=== PATIENT | male | born 1945 | race Caucasian/White ===

== ENCOUNTER 2019-10-02 10:54 | Outpatient (CLI) | payer MEDICARE, SELFPAY ==
--- NOTE | ~2019-10-02 | XR_ITS ---
EXAMINATION: XR chest 2V EXAM DATE: 10/02/2019 11:17 INDICATION: Shortness of breath. TECHNIQUE: Frontal and lateral projections of the chest obtained and reviewed. Comparison is made to prior examination from 07/19/2019. FINDINGS: There is patchy multisegmental left lower lobe airspace disease, small amount of right bas ilar airspace disease. Appearance most consistent with bronchopneumonia. Mid and upper lung zones are unremarkable. No pneumothorax or pleural effusion. Cardiomediastinal silhouette is normal. There are no osseous abnormalities identified. IMPRESSION: Development of bibasilar left greater than right multifocal airspace disease appearance m ost consistent with bronchopneumonia. Recommend 3 week follow-up exam. Reviewed, dictated and finalized at location B. 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 Recommend 3 week fo llow-up exam.
[2019-10-02 11:46] LABS: Basophils Absolute Auto 0.1 K/mm3 (0.0-0.1); Basophils Percent Auto 0.5 % (0.2-1.2); Eosinophils Percent Auto 0.2 % (0-4.4); Hematocrit 31.1 % (42.0-52.0); Immature Granulocyte Absolute 0.08 K/mm3 (0.00-0.031); Immature Granulocyte Percent A 0.6 % (0-0.5); Lymphocytes Absolute Auto 2.08 K/mm3 (0.9-3.2); Lymphocytes Percent Auto 15.6 % (18.3-44.2); Mean Corpuscular HGB Conc 32.2 g/dl (32-36); Mean Corpuscular Hemoglobin 30.4 pg (26-34); Mean Corpuscular Volume 94.5 fl (80-100); Mean Platelet Volume 10.7 fl (7.4-10.4); Monocytes Absolute Auto 1.2 K/mm3 (0.1-0.6); Monocytes Percent Auto 9.2 % (2.6-8.5); Neutrophils Absolute Auto 9.9 K/mm3 (1.3-6.7); Neutrophils Percent Auto 73.9 % (45.5-73.1); Platelet Count Result 287 k/mm3 (150-375); Red Blood Count 3.29 M/mm3 (4.6-6.20); Red Cell Distribution Width 15.7 % (11.5-14.5); White Blood Count 13.3 K/mm3 (4.5-10.0)
== END 2019-10-02 10:55 | disposition home or self-care (01) ==
LOC: ANHIMG 11:03
PROVIDERS: PCP Internal Medicine; Visit Provider Internal Medicine
DX: R06.09 Other forms of dyspnea (principal); D64.9 Anemia, unspecified; R91.8 Other nonspecific abnormal finding of lung field
CPT/HCPCS: 36415; 71046; 85025

== ENCOUNTER 2019-10-30 13:51 | Outpatient (CLI) | payer MEDICARE, SELFPAY ==
--- NOTE | ~2019-10-30 | XR_ITS ---
EXAMINATION: XR chest 2V DATE: 10/30/2019 14:07 INDICATION: Pneumonia, unspecified organism TECHNIQUE: Frontal and lateral views of the chest are obtained COMPARISON: 10/02/2019 FINDINGS: There are chronic reticular opacities of the lung bases there appear to be unchanged superi mposed opacities of the left lung base. There is no pleural effusion or pneumothorax. The cardiomedia stinal silhouette is normal. There is mild thoracic spondylosis. IMPRESSION: 1. Chronic interstitial lung disease of the visualized lung bases with possible superimposed pneumoni a or worsening interstitial lung disease in the left lung base Reviewed, dictated and finalized at location B. IMPRESSION: 1. Chronic interstitial lung disease of the visualized lung bases with possible superimposed pneumonia or worsening interstitial lung disease in the left lung base
== END 2019-10-30 13:52 | disposition home or self-care (01) ==
PROVIDERS: PCP Internal Medicine; Visit Provider Internal Medicine
DX: J84.9 Interstitial pulmonary disease, unspecified (principal)
CPT/HCPCS: 71046

== ENCOUNTER 2020-01-12 12:45 | Outpatient (CLI) | payer MEDICARE, SELFPAY ==
--- NOTE | ~2020-01-12 | XR_ITS ---
EXAMINATION: XR chest 2V EXAM DATE: 01/12/2020 13:06 INDICATION: Abnormal findings on diagnostic imaging. Follow-up exam. TECHNIQUE: Frontal and lateral projections of the chest obtained and reviewed. Comparison is made to prior examination from 10/30/2019. FINDINGS: Improvement in previously seen and suspected acute left basilar airspace disease, likely r esolution of the acute process at that time. The remaining by basilar airspace disease and microcalci fications consistent with chronic interstitial lung disease. The lungs are otherwise clear. There ar e no pleural effusions. The cardiomediastinal silhouette is within normal limits. There is no pneum othorax suspected. The bones and soft tissues are unremarkable. IMPRESSION: 1. Resolution of previously seen acute left basilar airspace disease. 2. Chronic interstitial lung disease. Reviewed, dictated and finalized at location A.
== END 2020-01-12 12:46 | disposition home or self-care (01) ==
LOC: ANHIMG 12:51
PROVIDERS: PCP Internal Medicine; Visit Provider Internal Medicine
DX: R93.89 Abnormal findings on diagnostic imaging of other specified body structures (principal); J84.9 Interstitial pulmonary disease, unspecified
CPT/HCPCS: 71046

== ENCOUNTER 2020-02-20 07:29 | Outpatient (CLI) | payer MEDICARE, SELFPAY ==
--- NOTE | ~2020-02-20 | US_ITS ---
US right upper quadrant INDICATION: Increased liver function tests PROCEDURE: Realtime right upper abdominal ultrasound. COMPARISON: No prior studies for comparison. FINDINGS: The pancreas is normal without focal mass or pancreatic ductal dilation. Liver echotexture is normal without focal mass or intrahepatic biliary dilatation. There is normal directional flow i n the portal vein. There is echogenic debris within the gallbladder with possible irregularity to the gallbladder morris. No definite stones. Common bile duct measures 5.6 mm. No sonographic Humphreys's sign. IMPRESSION: 1: Echogenic debris of the gallbladder with possible gallbladder wall irregularity/thickening. This m ay represent sludge, although gallbladder malignancy is not excluded. No definite cholelithiasis. No biliary dilatation. Reviewed, dictated and finalized at location B. IMPRESSION: 1: Echogenic debris of the gallbladder with possible gallbladder wall irregular ity/thickening. This may represent sludge, although gallbladder malignancy is n ot excluded. No definite cholelithiasis. No biliary dilatation.
== END 2020-02-20 07:30 | disposition home or self-care (01) ==
PROVIDERS: PCP Internal Medicine; Visit Provider Nurse Practitioner
DX: R79.89 Other specified abnormal findings of blood chemistry (principal)
CPT/HCPCS: 76705

== ENCOUNTER 2020-03-06 00:47 | Outpatient (CLI) | payer MEDICARE, SELFPAY ==
[2020-03-06 18:30] LABS: SARS-CoV-2 RNA PCR Negative
== END 2020-03-06 00:48 | disposition home or self-care (01) ==
LOC: ANHCOVIDDT 00:47
PROVIDERS: PCP Internal Medicine; Visit Provider Internal Medicine Gastroenterology
DX: Z01.812 Encounter for preprocedural laboratory examination (principal); Z11.59 Encounter for screening for other viral diseases
CPT/HCPCS: 87635; C9803; U0003

== ENCOUNTER 2020-03-09 02:02 | Day surgery (SDC) | payer MEDICARE, SELFPAY ==
[2020-02-27 14:52] VITALS: BMI 23.4
--- NOTE | 2020-03-08 09:59 | WPDANESEPP ---
Anes - Eval Pre Procedure Procedure: Operation Date: 03/09/20 07:30 Proposed Procedures p Colonoscopy - Alvaro Jaramillo MD Date/Time: 03/08/20 09:59 Pre Op Diagnosis: Colitis Patient Data Age: 75 Gender: M Height: 1.91 m Weight: 85 kg Allergies Allergy/AdvReac Type Severity Reaction Status Date / Time No Known Allergies Allergy Unknown Verified 03/01/20 16:06 Home Medications Medication Instructions Recorded Confirmed Type cholecalciferol (vitamin D3) 2,000 unit PO DAILY 08/04/19 03/05/20 History [Vitamin D3] fukgafxr-jxr-SJ-lycopen-lutein 1 tablet PO DAILY 08/04/19 03/05/20 History [Centrum Silver Men] omega 5-bru-jga-fish oil [Fish Oil] 1 cap PO DAILY 08/04/19 03/05/20 History insulin degludec 200 unit/mL (3 41 unit SUBCUT DAILY ml 02/12/20 03/05/20 History mL) subcutaneous pen lisinopril 20 mg tablet 20 mg PO DAILY #90 tablet 02/12/20 03/05/20 Rx simvastatin 40 mg tablet 40 mg PO DAILY #90 tablet 02/12/20 03/05/20 Rx peg 3350-electrolytes 236 240 ml PO Q10M #4000 ml 02/18/20 03/05/20 Rx gram-22.74 gram-6.74 gram-5.86 gram solution omeprazole 20 mg capsule,delayed 20 mg PO BID #60 cap 02/23/20 03/05/20 Rx release Patient hx anesthesia problems: none Family hx anesthesia problems: none PMFSH Past Medical History Medical History Anemia Arthritis Crohn's disease Diabetes mellitus Diarrhea Early satiety Erosive gastritis HLD (hyperlipidemia) HTN (hypertension) Renal failure Ulcerative pancolitis Weight loss Surgical History Surgical History History of ankle surgery 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
[2020-03-09 06:33] LABS: Glucose Point of Care 78 (65-105)
--- NOTE | 2020-03-09 06:43 | WPDANESEFPP ---
Anes - Eval Final PreProcedure Day of Procedure 03/09/20 06:43 Patient weight: normal Heart: regular rate and rhythm Lungs: clear to auscultation and normal air movement Airway: Mallampati scale class III Neurological: alert and oriented Last oral intake: >/= 8 hours ASA classification: III Emergent: no Anesthetic plan: proceed Anesthesia type and monitoring: general GIVS and standard monitoring Informed Consent: The patient's anesthetic plan and its attendant risks and benefits were discussed with the patient/family/POA. Questions were solicited and answers provided to the satisfaction of the patient/family/POA.
[2020-03-09] MEDS: LACTATED RINGERS 1,000 ML 150 ML IV CONT (06:51)
[2020-03-09 07:11] VITALS: BP 133/64; PULSE 73; RESP 16; TEMP 36.4; O2SAT 98
--- NOTE | 2020-03-09 07:53 | PM.HPGS ---
History of Present Illness History of Present Illness Consent: Risks, benefits, and alternatives have been discussed and questions answered. Patient agrees to proceed with procedure. Chief complaint: Colitis Narrative: Anatoliy Mendez is a 75 year old male with pancolitis (UC), unfortunately few weeks ago did not refill his mesalamine and started having again diarrhea. Review of Systems Constitutional: Constitutional: Denies headache(s) and Denies weakness Eyes: Eyes: Denies blurry vision ENT: Reports Normal hearing present, Denies headache(s) and Denies neck pain Cardiovascular: Cardiovascular: Denies chest pain and Denies dyspnea Respiratory: Respiratory: Denies dyspnea Gastrointestinal: Gastrointestinal: Reports no additional gastrointestinal complaints Genitourinary: Genitourinary: Denies dysuria Musculoskeletal: Musculoskeletal: Denies neck pain Integumentary/Breasts: Skin/Breast: Denies dry skin Neurologic: Reports Normal hearing present, Denies headache(s) and Denies weakness Psychiatric: Psychiatric: Denies anxiety Endocrine: Endocrine: Denies change in body appearance Hematologic/Lymphatic: Hematologic/Lymphatic: Denies easy bleeding Allergic/Immunologic: Allergic/Immunologic: Denies urticaria PMFSH Past Medical History Medical History Anemia Arthritis Crohn's disease Diabetes mellitus Diarrhea Early satiety Erosive gastritis HLD (hyperlipidemia) HTN (hypertension) Renal failure Ulcerative pancolitis Weight loss Surgical History Surgical History History of ankle surgery 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 Family History Family History Father Lung cancer Social History Social History Smoking status: Unknown if ever smoked Alcohol intake: current Gender identity (if verbalized by the patient): Male Meds Home Medications and Allergies Home Medications Medication Instructions Recorded Confirmed Type cholecalciferol (vitamin D3) 2,000 unit PO DAILY 08/04/19 03/09/20 History [Vitamin D3] oyhsophr-nyl-PM-lycopen-lutein 1 tablet PO DAILY 08/04/19 03/09/20 History [Centrum Silver Men] omega 4-leu-lqv-fish oil [Fish Oil] 1 cap PO DAILY 08/04/19 03/09/20 History insulin degludec 200 unit/mL (3 41 unit SUBCUT DAILY ml 02/12/20 03/09/20 History mL) subcutaneous pen lisinopril 20 mg tablet 20 mg PO DAILY #90 tablet 02/12/20 03/09/20 Rx simvastatin 40 mg tablet 40 mg PO DAILY #90 tablet 02/12/20 03/09/20 Rx omeprazole 20 mg capsule,delayed 20 mg PO BID #60 cap 02/23/20 03/09/20 Rx release budesonide 3 mg 6 mg PO DAILY #60 each 03/09/20 Rx capsule,delayed,extended release mesalamine 1.2 gram tablet,delayed 3.6 gm PO DAILY 30 Days #90 tablet 03/09/20 Rx release Allergies Allergy/AdvReac Type Severity Reaction Status Date / Time No Known Allergies Allergy Unknown Verified 03/09/20 06:35 Vital Signs Vital Signs - 24 hr 03/09/20 07:11 Temperature 97.6 F Pulse Rate 73 Respiratory Rate 16 Blood Pressure 133/64 Pulse Oximetry 98 Exam Const: General: comfortable and no acute distress HENMT: General nose exam: Normal nares present Eyes: General: appearance normal, both eyes and all related structures Neck: Neck: no JVD Resp: Auscultation: clear to auscultation bilaterally Cardio: Rate: regular rate Rhythm: regular rhythm GI: Inspection: non-distended GI Palp: Yes Soft to palpation Skin: General skin exam: normal color Neuro: General: gait normal Speech: normal speech Extrem: General: normal to inspection Psych: Mental Status: mental status grossly normal Assessment and Plan Assessment and plan (1) Ulcerative pancolitis: Code(s): K51.00 - 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
[2020-03-09 07:54] VITALS: BP 86/53; PULSE 62; RESP 18; O2SAT 100
--- NOTE | 2020-03-09 08:03 | SUR.PHASEII ---
0803 -blood sugar =69
[2020-03-09 08:04] VITALS: BP 93/56; PULSE 60; RESP 19; O2SAT 100
[2020-03-09 08:05] LABS: Glucose Point of Care 69 (65-105)
[2020-03-09 08:13] VITALS: BP 103/66; PULSE 67; RESP 21; O2SAT 99
[2020-03-09 08:23] VITALS: BP 98/55; PULSE 60; RESP 15; O2SAT 98
== END 2020-03-09 08:31 | disposition home or self-care (01) ==
PROVIDERS: PCP Internal Medicine; Visit Provider Internal Medicine Gastroenterology
PROC: 0DJD8ZZ Inspection of Lower Intestinal Tract, Via Natural or Artificial Opening Endoscopic (ICD-10-PCS; CPT 45378; principal; 2020-03-09 07:30)
DX: K51.00 Ulcerative (chronic) pancolitis without complications (principal); R94.5 Abnormal results of liver function studies; K29.60 Other gastritis without bleeding; I10 Essential (primary) hypertension; E78.5 Hyperlipidemia, unspecified; E11.9 Type 2 diabetes mellitus without complications; Z79.4 Long term (current) use of insulin
CPT/HCPCS: 45380; 88305; J2001; J2704; J7120

== ENCOUNTER → 2020-03-22 08:48 | Outpatient (CLI) | payer MEDICARE, SELFPAY ==
--- NOTE | ~2020-03-22 | MR_ITS ---
EXAMINATION: MR abdomen wo/w con DATE: 03/22/2020 09:49 INDICATION: Gallbladder mass. TECHNIQUE: Magnetic resonance imaging (MRI) of the abdomen was performed without and with 15 mL Multi Alber intravenous contrast. Sequences included coronal T2-weighted FS FSE, coronal and axial FS FIEST A, axial T2-weighted FSE, coronal LAVA-flex, axial STIR FSE, axial DWI, axial dual-echo T1-weighted F SPGR, and axial LAVA. Postcontrast sequences included coronal LAVA-flex and a time course of axial LA VA. COMPARISON: Ultrasound 02/20/2020, CT abdomen and pelvis 07/19/2019 FINDINGS: The liver is normal. The gallbladder is decompressed. The gallbladder wall is trabeculated. No gallst ones or abnormal gallbladder mass. The common duct is normal in caliber. The pancreas, spleen, and ad renal glands are normal. There are cysts in the kidneys measuring up to 6.6 cm on the left. There are no dilated loops of bowel. There is chronic mild periportal lymphadenopathy, likely reactive. There is no free intraperitoneal fluid. IMPRESSION: 1. No evidence of malignancy. Reviewed, dictated and finalized at location A.
[2020-03-22 09:18] LABS: Estimated Glomerular Filt Rate 42
== END ==
PROVIDERS: Visit Provider Surgery
DX: R93.2 Abnormal findings on diagnostic imaging of liver and biliary tract (principal)
CPT/HCPCS: 36415; 74183; A9577

== ENCOUNTER 2020-03-29 00:45 | Outpatient (CLI) | payer MEDICARE, SELFPAY ==
[2020-03-29 19:34] LABS: SARS-CoV-2 RNA PCR Negative
== END 2020-03-29 00:46 | disposition home or self-care (01) ==
LOC: ANHCOVIDDT 00:45
PROVIDERS: PCP Internal Medicine; Visit Provider Internal Medicine Gastroenterology
DX: Z01.812 Encounter for preprocedural laboratory examination (principal); Z20.828 Contact with and (suspected) exposure to other viral communicable diseases
CPT/HCPCS: 87635; C9803; U0003

== ENCOUNTER 2020-03-31 01:47 | Day surgery (SDC) | payer MEDICARE, SELFPAY ==
[2020-03-25 10:20] VITALS: BMI 23.1
--- NOTE | 2020-03-29 14:46 | WPDANESEPPF ---
Anes - Initial Pre Proc Eval Procedure: Operation Date: 03/31/20 09:30 Proposed Procedures p Flexible Sigmoidoscopy - Alvaro Jaramillo MD Date/Time: 03/29/20 14:46 Surgeon: Alvaro Jaramillo MD Pre Op Diagnosis: Sigmoid Mass Patient Data Age: 75 Gender: M Height: 1.91 m Weight: 84 kg Allergies Allergy/AdvReac Type Severity Reaction Status Date / Time No Known Allergies Allergy Unknown Verified 03/31/20 08:43 Home Medications Medication Instructions Recorded Confirmed Type cholecalciferol (vitamin D3) 2,000 unit PO DAILY 08/04/19 03/31/20 History [Vitamin D3] odlifqll-tif-AY-lycopen-lutein 1 tablet PO DAILY 08/04/19 03/31/20 History [Centrum Silver Men] omega 5-qsr-qyd-fish oil [Fish Oil] 1 cap PO DAILY 08/04/19 03/31/20 History lisinopril 20 mg tablet 20 mg PO DAILY #90 tablet 02/12/20 03/31/20 Rx simvastatin 40 mg tablet 40 mg PO DAILY #90 tablet 02/12/20 03/31/20 Rx omeprazole 20 mg capsule,delayed 20 mg PO BID #60 cap 02/23/20 03/31/20 Rx release budesonide 3 mg 6 mg PO DAILY #60 each 03/09/20 03/31/20 Rx capsule,delayed,extended release mesalamine 1.2 gram tablet,delayed 3.6 gm PO DAILY 30 Days #90 tablet 03/09/20 03/31/20 Rx release insulin degludec 200 unit/mL (3 41 unit SUBCUT DAILY #9 ml 03/29/20 03/31/20 Rx mL) subcutaneous pen Patient hx anesthesia problems: none Family hx anesthesia problems: none PMFSH Social History Social History Smoking status: Unknown if ever smoked Alcohol intake: current Gender identity (if verbalized by the patient): Male Anes - Eval Final PreProcedure Day of Procedure 03/29/20 14:46 Patient weight: normal Heart: regular rate and rhythm Lungs: clear to auscultation and normal air movement Airway: Mallampati scale class II Neurological: alert and oriented Last oral intake: >/= 8 hours ASA classification: III Emergent: no Anesthetic plan: proceed Anesthesia type and monitoring: general GIVS and standard monitoring Informed Consent: The patient's anesthetic plan and its attendant risks and benefits were discussed with the patient/family/POA. Questions were solicited and answers provided to the satisfaction of the patient/family/POA.
[2020-03-31 08:44] VITALS: BP 134/101; PULSE 118; RESP 20; TEMP 36.6; BMI 23.3
[2020-03-31] MEDS: LACTATED RINGERS 1,000 ML 150 ML IV CONT (09:00)
[2020-03-31 09:01] LABS: Glucose Point of Care 61 (65-105)
--- NOTE | 2020-03-31 09:03 | SUR.PREOP ---
ANESTHESIA AWARE OF LOW BLOOD SUGAR OF 61, NO NEW ORDERS
[2020-03-31 09:47] VITALS: BP 82/51; PULSE 58; RESP 20; O2SAT 98
[2020-03-31 09:57] VITALS: BP 96/61; PULSE 56; RESP 25; O2SAT 100
[2020-03-31 10:11] VITALS: BP 105/67; PULSE 57; RESP 20; O2SAT 100
[2020-03-31 10:25] LABS: Glucose Point of Care 50 (65-105)
[2020-03-31 10:47] LABS: Glucose Point of Care 50 (65-105)
== END 2020-03-31 09:58 | disposition home or self-care (01) ==
PROVIDERS: PCP Internal Medicine; Visit Provider Internal Medicine Gastroenterology
PROC: 0DJD8ZZ Inspection of Lower Intestinal Tract, Via Natural or Artificial Opening Endoscopic (ICD-10-PCS; CPT 45330; principal; 2020-03-31 09:30)
DX: K51.00 Ulcerative (chronic) pancolitis without complications (principal); D12.5 Benign neoplasm of sigmoid colon; K57.30 Diverticulosis of large intestine without perforation or abscess without bleeding; K64.8 Other hemorrhoids; K29.60 Other gastritis without bleeding; I10 Essential (primary) hypertension; E78.5 Hyperlipidemia, unspecified; E11.9 Type 2 diabetes mellitus without complications; Z79.4 Long term (current) use of insulin; Z79.899 Other long term (current) drug therapy
CPT/HCPCS: 45381; 45380; 88305; J2704; J7120

== ENCOUNTER 2020-04-27 11:50 | Outpatient (CLI) | payer MEDICARE, SELFPAY ==
--- NOTE | 2020-04-27 12:54 | ECG_ITS ---
Measurements Intervals [place] Rate: 58 P: 129 NH: 149 QRS: 2 QRSD: 89 T: -6 QT: 402 QTc: 398 Interpretive Statements SINUS BRADYCARDIA ATRIAL PREMATURE COMPLEXES EARLY PRECORDIAL R/S TRANSITION BORDERLINE T WAVE ABNORMALITY- INFERIOR LEADS BORDERLINE ECG Electronically Signed On 04-27-2020 13:05:25 CDT by Daniel Spangler D.O.
[2020-04-27 13:10] LABS: Hematocrit 34.9 % (42.0-52.0); Hemoglobin 11.3 g/dL (14.0-18.0)
[2020-04-27 13:21] LABS: INR 1.1; Prothrombin Time 13.6 Seconds (11.1-14.7)
[2020-04-27 13:22] LABS: Anion Gap 5 mmol/L (8-16); Blood Urea Nitrogen 22 mg/dL (9-20); Calcium 9.3 mg/dL (8.4-10.2); Carbon Dioxide 28 mmol/L (22-30); Chloride 105 mmol/L (98-107); Estimated Glomerular Filt Rate 42; Glucose 185 mg/dL (75-110); Partial Thromboplastin Time 30.5 SECONDS (22.3-36.8); Potassium 4.6 mmol/L (3.4-5.0); Sodium 138 mmol/L (137-145)
== END 2020-04-27 11:51 | disposition home or self-care (01) ==
LOC: ANHSURGERY 11:51
PROVIDERS: Anesthesiology; PCP Internal Medicine; Visit Provider Surgery
DX: D12.6 Benign neoplasm of colon, unspecified (principal); I10 Essential (primary) hypertension; E11.9 Type 2 diabetes mellitus without complications; N19 Unspecified kidney failure; D64.9 Anemia, unspecified; Z01.818 Encounter for other preprocedural examination; R94.31 Abnormal electrocardiogram [ECG] [EKG]
CPT/HCPCS: 36415; 80048; 85014; 85018; 85610; 85730; 86850; 86900; 86901; 93005

== ENCOUNTER 2020-05-01 01:05 | Outpatient (CLI) | payer MEDICARE, SELFPAY ==
[2020-05-01 14:01] LABS: SARS-CoV-2 RNA PCR Negative
== END 2020-05-01 01:06 | disposition home or self-care (01) ==
LOC: ANHCOVIDDT 01:06
PROVIDERS: PCP Internal Medicine; Visit Provider Surgery
DX: Z01.812 Encounter for preprocedural laboratory examination (principal); Z20.828 Contact with and (suspected) exposure to other viral communicable diseases
CPT/HCPCS: 87635; C9803; U0003

== ENCOUNTER 2020-05-04 13:29 | Inpatient (IN) | payer MEDICARE, SELFPAY ==
[2020-04-27 12:09] VITALS: BMI 24.6
[2020-04-27 12:10] VITALS: BP 137/71; PULSE 65; RESP 16; TEMP 36.8; O2SAT 98
[2020-05-04] VITALS (11 sets, daily range): BP systolic 104–130; BP diastolic 53–71; PULSE 53–72; RESP 9–18; TEMP 36.2–36.6; O2SAT 97–100
[2020-05-04] MEDS: ACETAMINOPHEN 500 MG TABLET 1000 MG PO ×3 (07:45→20:08)
--- NOTE | 2020-05-04 08:01 | WPDANESEPPF ---
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 Patient Data Age: 75 Gender: M Height: 6 ft 3.5 in Weight: 90.5 kg Last Vital Signs Temp 36.8 C 04/27/20 12:10 Pulse 65 04/27/20 12:10 Resp 16 04/27/20 12:10 BP 137/71 04/27/20 12:10 Pulse Ox 98 04/27/20 12:10 Allergies Allergy/AdvReac Type Severity Reaction Status Date / Time No Known Allergies Allergy Unknown Verified 04/27/20 12:04 Home Medications Medication Instructions Recorded Confirmed Type cholecalciferol (vitamin D3) 2,000 unit PO DAILY 08/04/19 04/27/20 History [Vitamin D3] psxglwtc-tlb-RO-lycopen-lutein 1 tablet PO DAILY 08/04/19 04/27/20 History [Centrum Silver Men] omega 1-odm-cyq-fish oil [Fish Oil] 1 cap PO DAILY 08/04/19 04/27/20 History omeprazole 20 mg capsule,delayed 20 mg PO BID #60 cap 02/23/20 04/27/20 Rx release budesonide 3 mg PO BID 04/27/20 04/27/20 History insulin degludec [Tresiba 41 unit SUBCUT QAM 04/27/20 04/27/20 History FlexTouch U-200] lisinopril 20 mg PO QAM 04/27/20 04/27/20 History mesalamine [Lialda] 3.6 gm PO TID 04/27/20 04/27/20 History simvastatin 40 mg PO HS 04/27/20 04/27/20 History Patient hx anesthesia problems: none Family hx anesthesia problems: none PMFSH Past Medical History Medical History Anemia Arthritis Crohn's disease Diabetes mellitus Diarrhea Early satiety Erosive gastritis HLD (hyperlipidemia) HTN (hypertension) Renal failure Ulcerative pancolitis Weight loss Surgical History Surgical History History of ankle surgery 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 Family History Family History Father , 72 Lung cancer Mother , 93 Diabetes mellitus Heart disease Social History Social History Smoking packs per day: 1 Smoking cigarettes per day: 20.0 Years smoked: 30 Smoking pack-years: 30.00 Smoking status: Former smoker Tobacco type: cigarettes Smoking end date: 08/06/84 Alcohol intake: current Drinks per week: 4 Substance use: never Living arrangements: with family Gender identity (if verbalized by the patient): Male Spiritual care concerns: No Anes - Eval Final PreProcedure Day of Procedure 05/04/20 08:01 Patient weight: normal Heart: regular rate and rhythm Lungs: decreased breath sounds Airway: Mallampati scale class II Neurological: alert and oriented Last oral intake: >/= 8 hours ASA classification: III Emergent: no Anesthetic plan: proceed Anesthesia type and monitoring: general ETT and standard monitoring Informed Consent: The patient's anesthetic plan and its attendant risks and benefits were discussed with the patient/family/POA. Questions were solicited and answers provided to the satisfaction of the patient/family/POA.
[2020-05-04] MEDS: KETOROLAC 15 MG/ML VIAL (*BKC) IV PUSH (08:10)
[2020-05-04] MEDS: LACTATED RINGERS 1,000 ML 30 ML IV CONT ×2 (08:10→12:26)
[2020-05-04 08:11] LABS: Glucose Point of Care 96 (65-105)
--- NOTE | 2020-05-04 08:40 | WPDHPUPDATE1 ---
History and Physical Update Update Date/Time: 05/04/20 08:40 History and Physical has been reviewed, including an updated exam of the patient. There are NO changes in the patient's condition. Risks, benefits, and alternatives have been discussed and questions answered. Patient agrees to proceed with procedure.
[2020-05-04 09:06] LABS: Carcinoembryonic Antigen 1.1 ng/mL (0.0-3.0)
[2020-05-04] MEDS: ceFAZolin 2 GM/D5W 50 ML 2 GM/50 ML BAG IVPB (09:27)
[2020-05-04] MEDS: metroNIDAZOLE 500 MG/ISO 100ML 500 MG/100 ML BAG 100 MG IVPB (09:40)
--- NOTE | 2020-05-04 12:29 | PM.PROC ---
Procedure Note - Detailed Date of procedure: 05/04/20 Pre-op diagnosis: SIGMOID TUBULLVILLOUS ADENOMA Post-op diagnosis: same Procedure performed: Hand assisted laparoscopic sigmoid colectomy with colorectal anastomosis Description of procedure: Procedure as well as risks benefits and alternatives were explained to the patient. Written consent was obtained and placed in chart prior to procedure. Patient was brought back to surgical suite. He was placed supine on operating table. Time-out was done to confirm patient procedure. He was then intubated by the anesthesia department. He was re-positioned to modified lithotomy position. His abdomen was prepped and draped in sterile fashion using chlorhexidine prep. His rectum was irrigated with Betadine and his perirectal area was prepped and draped in sterile fashion using Betadine prep. A 7 centimeter vertical incision was made just inferior to the umbilicus using a 15 blade scalpel. Electrocautery was used for hemostasis and for dissection down through Rafal's fascia. The linea alba was then incised using electrocautery. The peritoneum was bluntly entered using a curved hemostats. A carefully inspected the abdomen through the small hand port incision, and then placed the wound protector at this incision followed by the gel port with a 5 millimeter trocar placed through it. Carbon dioxide insufflation was then used to create a pneumoperitoneum. The abdomen was inspected, and no significant abnormalities were identified. The patient was then placed in steep Trendelenburg position and rotated to the right. Exparel was infiltrated bilaterally along the abdominal wall to perform a transversus abdominis plane block. A 5 millimeter incision was made in the suprapubic region and in the right upper quadrant and 5 millimeter ports were placed under direct visualization. A 12 millimeter incision was made in the right lower quadrant, and a 12 millimeter port was placed under direct visualization. I placed my left hand through the GelPort and carefully inspected the colon. The sigmoid colon was retracted anteriorly to tent up the inferior mesenteric artery and mesocolon. The medial side of the peritoneum was scored using hook electrocautery. I entered into the avascular retroperitoneal plane and continued the medial to lateral dissection. The left ureter was identified and preserved in its location throughout the entire case. The continued dissection with hook electrocautery and ligasure bipolar cautery to clear off the adventitia around the inferior mesenteric artery. Once the inferior mesenteric artery was isolated, I then ligated it with the ligasure bipolar cautery. The ureter was identified and position was verified before like getting the vessel. I then continued along the medial to lateral plane and dissected out to the lateral peritoneal attachments of the descending and sigmoid colon. I then continued this dissection distally along the upper rectum. The sigmoid colon was then retracted further medially and the lateral peritoneal attachments were taken down using hook electrocautery. I continued this dissection up to the descending colon. The descending colon appeared mobile enough to come down into the pelvis. I then cleared off an area on the upper rectum and took down the mesorectum using ligasure bipolar cautery. The echelon 60 millimeter blue load stapler was then advanced across the upper rectum and clamped and fired. This freed up our rectum completely. The staple line appeared secure. Indocyanine green was then infused intravenously to assess for perfusion to the colon and rectal stump. Perfusion appeared adequate at both ends. The patient was then flattened out in bed and the pneumoperitoneum was released. The sigmoid colon was then delivered through the wound protector and the GelPort was removed. The segment of colon was inspected. I identified an area along the descending colon that appeared h
--- NOTE | 2020-05-04 12:43 | SUR.PHASEI ---
1226; PT ARRIVED INTO PACU. PLACED ON MONITOR. SHOWS NSR/SB WITH FREQUENT PAC'S. 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
[2020-05-04 12:52] LABS: Glucose Point of Care 96 (65-105)
--- NOTE | 2020-05-04 13:12 | SUR.PHASEI ---
PT SLEEPING. AROUSES EASILY. DENIES PAIN OR NAUSEA. HOB ELEVATED 30 DEGREES.REPORT FAXED TO FLOOR.
--- NOTE | 2020-05-04 13:35 | PC.NURSE ---
This patient, Anatoliy Mendez, was admitted to 3 Med Surg Room 303-01. Patient/family oriented to hospital policies and general routines including ID bracelet, bed and alarms, visiting hours, pain management, procedures, bathroom and other care routines, personal items, smoking policy, room service/diet, and visiting hours. Valuables list has been completed. Information on how to activate the Rapid Response Team has been discussed. Patient/Family are encouraged to report perceived risks to care and to ask questions if they do not understand what they are told or what they should do. Report received from Sienna RUANO
[2020-05-04] MEDS: LACTATED RINGERS 1,000 ML 100 ML IV CONT (14:06)
--- NOTE | 2020-05-04 15:07 | PM.IMCN ---
Assessment and Plan Assessment and plan (1) S/P colectomy: Code(s): Z90.49 - Acquired absence of other specified parts of digestive tract Status: Acute Assessment and Plan: pain management per surgery and DVT prophylaxis per surgery. Patient has SCDs and Lovenox ordered. (2) Renal failure: Qualifiers: Renal failure chronicity: unspecified chronicity Qualified Code(s): N19 - Unspecified kidney failure Code(s): N19 - Unspecified kidney failure Status: Chronic Assessment and Plan: Chronic renal failure stage 3 patient appears to be at his baseline. Continue to monitor. (3) Anemia: Qualifiers: Anemia type: unspecified type Qualified Code(s): D64.9 - Anemia, unspecified Code(s): D64.9 - Anemia, unspecified Status: Acute Assessment and Plan: Appears to be chronic and stable. (4) Diabetes mellitus: Qualifiers: Diabetes mellitus type: type 2 Diabetes mellitus moth exterminator insulin use: with moth exterminator use Diabetes mellitus complication status: with other specified complication Qualified Code(s): E11.69 - Type 2 diabetes mellitus with other specified complication; Z79.4 - buttermaker (current) use of insulin Code(s): E11.9 - Type 2 diabetes mellitus without complications Status: Chronic Assessment and Plan: Patient's blood sugars are low so it would be best just to do sliding scale insulin at this time. Accu-Cheks AC and HS. Check A1c. (5) HTN (hypertension): Code(s): I10 - Essential (primary) hypertension Status: Chronic Assessment and Plan: Lisinopril is on hold at this time. (6) Ulcerative pancolitis: Code(s): K51.00 - Ulcerative (chronic) pancolitis without complications Status: Acute Assessment and Plan: Continue with lialda (7) HLD (hyperlipidemia): Code(s): E78.5 - Hyperlipidemia, unspecified Status: Chronic Assessment and Plan: continue with simvastatin HPI Data of Consult Consult date: 05/04/20 Requesting Physician: Todd Bradley DO Primary Care Provider: Alec Norris DO Consult Narrative Narrative: Anatoliy Mendez is a 75 year old male Who has had multiple EGDs and colonoscopies. The patient at 1 point was diagnosed with Crohn's and then it was decided that his ulcerative colitis. The patient has had many polyps removed in the past from the colon. He has also had gastritis as well. Today the patient had a hand assisted laparoscopic sigmoid colectomy with colorectal anastomosis. The patient had a colonoscopy performed on 03/31/2020 and he was found to have a tubulous adenoma in the sigmoid colon. Patient had been off of his masalamine for short period time because he did not have any refills and recently restarted on that medication and was feeling better. The patient underwent that hand assisted laparoscopic sigmoid colectomy today. The area had been tatooed. please see operative report. It was noted that there were no immediate complications. And is condition stable. I thank Dr. Ruiz for the consult. He has a history of hypertension hyperlipidemia and diabetes. The noted that the patient's blood date of consult 05/04/2020 Review of Systems Review of Systems: All systems reviewed & are unremarkable except as noted in HPI and below Constitutional: Constitutional: Reports as per HPI and Reports no additional constitutional complaints Eyes: Eyes: Reports as per HPI and Reports no additional eye complaints ENT: Reports system reviewed and no additional complaints, except as documented and Reports Normal hearing present Cardiovascular: Cardiovascular: Reports no additional cardiovascular complaints Respiratory: Respiratory: Reports no additional respiratory complaints and Reports no additional respiratory complaints Gastrointestinal: Gastrointestinal: Reports as per HPI and Reports no additional gastroint
[2020-05-04 18:40] LABS: Glucose Point of Care 174 (65-105)
[2020-05-04] MEDS: SIMVASTATIN 20 MG TABLET 40 MG PO (20:07)
[2020-05-04 20:50] LABS: Glucose Point of Care 276 (65-105)
[2020-05-05] VITALS: BP 123/64; PULSE 57; RESP 18; TEMP 36.2; O2SAT 96
[2020-05-05] MEDS: LACTATED RINGERS 1,000 ML 100 ML IV CONT ×2 (00:09→10:57)
[2020-05-05 00:14] LABS: Glucose Point of Care 215 (65-105)
[2020-05-05] MEDS: ACETAMINOPHEN 500 MG TABLET 1000 MG PO ×4 (01:58→20:15)
[2020-05-05 04:00] VITALS: BP 117/65; PULSE 61; RESP 18; TEMP 36.2; O2SAT 97
[2020-05-05 07:14] LABS: Basophils Percent Auto 0.2 % (0.2-1.2); Eosinophils Percent Auto 0.1 % (0-4.4); Hematocrit 31.1 % (42.0-52.0); Hemoglobin 10.2 g/dL (14.0-18.0); Immature Granulocyte Absolute 0.08 K/mm3 (0.00-0.031); Immature Granulocyte Percent A 0.5 % (0-0.5); Lymphocytes Absolute Auto 2.33 K/mm3 (0.9-3.2); Lymphocytes Percent Auto 14.3 % (18.3-44.2); Mean Corpuscular HGB Conc 32.8 g/dl (32-36); Mean Corpuscular Hemoglobin 31.2 pg (26-34); Mean Corpuscular Volume 95.1 fl (80-100); Mean Platelet Volume 10.9 fl (7.4-10.4); Monocytes Absolute Auto 1.2 K/mm3 (0.1-0.6); Monocytes Percent Auto 7.5 % (2.6-8.5); Neutrophils Absolute Auto 12.6 K/mm3 (1.3-6.7); Neutrophils Percent Auto 77.4 % (45.5-73.1); Platelet Count Result 289 k/mm3 (150-375); Red Blood Count 3.27 M/mm3 (4.6-6.20); Red Cell Distribution Width 13.2 % (11.5-14.5); White Blood Count 16.3 K/mm3 (4.5-10.0)
[2020-05-05 07:27] LABS: Anion Gap 7 mmol/L (8-16); Blood Urea Nitrogen 21 mg/dL (9-20); Calcium 8.6 mg/dL (8.4-10.2); Carbon Dioxide 26 mmol/L (22-30); Chloride 103 mmol/L (98-107); Estimated CRCL calculation 45 ml/min; Estimated Glomerular Filt Rate 49; Glucose 154 mg/dL (75-110); Potassium 4.8 mmol/L (3.4-5.0); Sodium 136 mmol/L (137-145)
[2020-05-05] MEDS: CHOLECALCIFEROL 1,000 UNITS TABLET 2000 UNITS PO (08:34)
[2020-05-05] MEDS: ENOXAPARIN 40 MG/0.4 ML SYRINGE SUB-Q (08:34)
[2020-05-05] MEDS: PANTOPRAZOLE 40 MG TABLET PO (08:35)
[2020-05-05 08:42] LABS: Glucose Point of Care 130 (65-105)
[2020-05-05 11:46] VITALS: BMI 21.7
--- NOTE | 2020-05-05 12:08 | PM.PNGS ---
Progress Note: A&P Assessment and Plan (1) Tubulovillous adenoma of colon: Code(s): D12.6 - Benign neoplasm of colon, unspecified Status: Acute Assessment and Plan: Advance to full liquids, stop IV fluids Increase activity Final path pending (2) Diabetes mellitus: Qualifiers: Diabetes mellitus type: type 2 Diabetes mellitus long term care social worker insulin use: with usp use Diabetes mellitus complication status: with other specified complication Qualified Code(s): E11.69 - Type 2 diabetes mellitus with other specified complication; Z79.4 - intermediate (current) use of insulin Code(s): E11.9 - Type 2 diabetes mellitus without complications Status: Chronic (3) HTN (hypertension): Code(s): I10 - Essential (primary) hypertension Status: Chronic (4) HLD (hyperlipidemia): Code(s): E78.5 - Hyperlipidemia, unspecified Status: Chronic (5) Ulcerative pancolitis: Code(s): K51.00 - Ulcerative (chronic) pancolitis without complications Status: Acute Assessment and Plan: Hold budesonide, continue mesalamine. Subjective Subjective Date/Time Seen: 05/05/20 12:08 Doing well POD#1. No flatus or BM yet. Tolerating clears. Ambulating. Not much pain at all. Exam GI: Inspection: normal to inspection, non-distended and incision (intact with glue) GI Palp: Yes Soft to palpation and Yes Tenderness to palpation present (GI) (incisional) Percussion: Yes normal to percussion Auscultation: normal bowel sounds Objective Data Vital Signs Vital Signs: Vital Signs - 24 hr 05/04/20 12:26 05/04/20 12:40 05/04/20 12:55 Temperature 36.2 C L 36.5 C Pulse Rate 70 55 L 54 L Respiratory Rate 9 L 14 14 Blood Pressure 117/71 126/70 113/53 L Pulse Oximetry 98 100 100 05/04/20 13:10 05/04/20 13:25 05/04/20 13:35 Temperature 36.6 C 36.6 C Pulse Rate 54 L 55 L 53 L Respiratory Rate 18 14 16 Blood Pressure 113/54 L 104/58 L 110/63 Pulse Oximetry 99 99 100 05/04/20 13:50 05/04/20 14:20 05/04/20 15:20 Temperature 36.4 C 36.6 C 36.4 C L Pulse Rate 56 L 56 L 64 Respiratory Rate 16 16 16 Blood Pressure 108/61 110/61 130/62 Pulse Oximetry 98 97 99 05/04/20 20:00 05/05/20 00:00 05/05/20 04:00 Temperature 36.3 C L 36.2 C L 36.2 C L Pulse Rate 72 57 L 61 Respiratory Rate 18 18 18 Blood Pressure 128/70 123/64 117/65 Pulse Oximetry 97 96 97 Intake/Output Intake/Output: Intake & Output 05/02/20 05/03/20 05/04/20 05/05/20 23:59 23:59 23:59 23:59 Intake Total 785 2250 Output Total 105 300 Balance 680 1950 Meds/Results Medications: Active Medications Generic Name Dose Route Start Last Admin Trade Name Freq PRN Reason Stop Dose Admin Acetaminophen 1,000 mg 05/04/20 14:00 05/05/20 08:34 Tylenol Tablet PO 1,000 mg Q6H CEDRICK Administration Enoxaparin Sodium 40 mg 05/05/20 09:00 05/05/20 08:34 Lovenox SUB-Q 40 mg DAILY CEDRICK Administration Hydromorphone HCl 1 mg 05/04/20 13:29 Dilaudid Inj IV PUSH Q2H PRN Pain Rated 7-10 Hydromorphone HCl 0.5 mg 05/04/20 13:29 Dilaudid Inj IV PUSH Q2H PRN Pain Rated 4-6 Lactated Ringer's 1,000 mls @ 100 mls/hr 05/04/20 13:29 05/05/20 10:57 Lr - Lactated Ringers Iv IV CONT 100 mls/hr .Q10H CEDRICK Administration Non-Formulary Medication 3.6 gm 05/04/20 13:29 Mesalamine [Lialda] PO 06/03/20 13:30 TID CEDRICK Ondansetron HCl 4 mg 05/04/20 13:29 Zofran Inj IV PUSH Q4H PRN Nausea And Vomiting Pantoprazole Sodium 40 mg 05/05/20 09:00 05/05/20 08:35 Protonix PO 40 mg QAM CEDRICK Administration Simvastatin 40 mg 05/04/20 21:00 05/04/20 20:07 Zocor PO 40 mg HS CEDRICK Administration Vitamin D 2,000 units 05/05/20 09:00 05/05/20 08:34 Vitamin D PO 2,000 units DAILY [facility] Administration Labs Labs: Laboratory Results - last 24 hr 05/04/20 05/04/20 05/04/20 12:49 18:36 20:39 WBC RBC
[2020-05-05 12:58] LABS: Glucose Point of Care 155 (65-105)
--- NOTE | 2020-05-05 13:01 | WPDANESPN ---
Anes - Prog Note Post-Op Date/Time: 05/05/20 13:01 Cardiovascular status: normal Respiratory status: normal Airway patency: baseline Mental status: baseline Post-Op hydration status: normal Vital Signs: Last Vital Signs Temp 36.2 C L 05/05/20 04:00 Pulse 61 05/05/20 04:00 Resp 18 05/05/20 04:00 BP 117/65 05/05/20 04:00 Pulse Ox 97 05/05/20 04:00 Pain Score (VAS): 0/10. Patient up at bedside at time of assessment, appears comfortable. No additional issues or concerns addressed by patient at time of assessment. I/O: Intake & Output 05/04/20 05/05/20 05/05/20 23:59 07:59 15:59 Intake Total 335 1250 1000 Output Total 75 300 Balance 787 549 7524 Laboratory Tests 05/05/20 06:20 05/05/20 06:20 05/04/20 05/04/20 05/05/20 18:36 20:39 00:11 WBC RBC Hgb Hct MCV MCH MCHC RDW Plt Count MPV Immature Gran % (Auto) Neut % (Auto) Lymph % (Auto) [place] % (Auto) Eos % (Auto) Baso % (Auto) Lymph # (Auto) [place] # (Auto) Eos # (Auto) Baso # (Auto) Abs Immat Gran (auto) Absolute Neuts (auto) Absolute Nucleated RBC Nucleated RBC % Sodium Potassium Chloride Carbon Dioxide Anion Gap BUN Creatinine Estim Creat Clear Calc Estimated GFR Glucose POC Capillary Glucose 174 H 276 H 215 H Calcium 05/05/20 05/05/20 05/05/20 06:20 06:20 08:33 WBC 16.3 H RBC 3.27 L Hgb 10.2 L Hct 31.1 L MCV 95.1 MCH 31.2 MCHC 32.8 RDW 13.2 Plt Count 289 MPV 10.9 H Immature Gran % (Auto) 0.5 Neut % (Auto) 77.4 H Lymph % (Auto) 14.3 L [place] % (Auto) 7.5 Eos % (Auto) 0.1 Baso % (Auto) 0.2 Lymph # (Auto) 2.33 [place] # (Auto) 1.2 H Eos # (Auto) 0.0 Baso # (Auto) 0.0 Abs Immat Gran (auto) 0.08 H Absolute Neuts (auto) 12.6 H Absolute Nucleated RBC 0.0 Nucleated RBC % 0.0 Sodium 136 L Potassium 4.8 Chloride 103 Carbon Dioxide 26 Anion Gap 7 L BUN 21 H Creatinine 1.40 H Estim Creat Clear Calc 45 Estimated GFR 49 L Glucose 154 H POC Capillary Glucose 130 H Calcium 8.6 05/05/20 12:42 WBC RBC Hgb Hct MCV MCH MCHC RDW Plt Count MPV Immature Gran % (Auto) Neut % (Auto) Lymph % (Auto) [place] % (Auto) Eos % (Auto) Baso % (Auto) Lymph # (Auto) [place] # (Auto) Eos # (Auto) Baso # (Auto) Abs Immat Gran (auto) Absolute Neuts (auto) Absolute Nucleated RBC Nucleated RBC % Sodium Potassium Chloride Carbon Dioxide Anion Gap BUN Creatinine Estim Creat Clear Calc Estimated GFR Glucose POC Capillary Glucose 155 H Calcium Post-procedural complaints: none Patient Feedback: Patient satisfied with anesthetic care.
[2020-05-05 14:00] VITALS: BP 120/68; PULSE 60; RESP 20; TEMP 36.3; O2SAT 97
--- NOTE | 2020-05-05 15:38 | PM.IMPN ---
Progress Note: A&P Assessment and Plan (1) S/P colectomy: Code(s): Z90.49 - Acquired absence of other specified parts of digestive tract Status: Acute Assessment and Plan: ------Post op day #1 and doing well. He is eating full liquids and plans to increase his diet soon. He is passing some gas but no bm yet. Pain management and DVT prophylaxis per sx. (2) Renal failure: Qualifiers: Renal failure chronicity: unspecified chronicity Qualified Code(s): N19 - Unspecified kidney failure Code(s): N19 - Unspecified kidney failure Status: Chronic Assessment and Plan: ------- Chronic renal failure stage 3 patient appears to be at his baseline. Continue to monitor. (3) Anemia: Qualifiers: Anemia type: unspecified type Qualified Code(s): D64.9 - Anemia, unspecified Code(s): D64.9 - Anemia, unspecified Status: Acute Assessment and Plan: ------ Appears to be chronic and stable. (4) Diabetes mellitus: Qualifiers: Diabetes mellitus complication status: with other specified complication Diabetes mellitus fci insulin use: with fci use Diabetes mellitus type: type 2 Qualified Code(s): E11.69 - Type 2 diabetes mellitus with other specified complication; Z79.4 - computer terminal operator (current) use of insulin Code(s): E11.9 - Type 2 diabetes mellitus without complications Status: Chronic Assessment and Plan: -----Pt states he is low around 50-60 in the morning and higher in the evening. I did discuss with him and the that this is too low and his regimen may need to be changed outpt. For now, we are going to continue what we are doing until he gets to a full diet. Last glucose 155. Will do SSI at this time. Likely restart long acting insulin tomorrow once I see how he runs overnight. He usually takes it in the morning anyway. (5) HTN (hypertension): Code(s): I10 - Essential (primary) hypertension Status: Chronic Assessment and Plan: last bp 120/68. Lisinopril is on hold at this time. (6) Ulcerative pancolitis: Code(s): K51.00 - Ulcerative (chronic) pancolitis without complications Status: Acute Assessment and Plan: ----- Continue with lialda. He will need to bring from home but pt is likey d/c tomorrow. (7) HLD (hyperlipidemia): Code(s): E78.5 - Hyperlipidemia, unspecified Status: Chronic Assessment and Plan: ---- continue with simvastatin Time Spent With Patient Time with patient: 25 - 35 minutes Subjective Date/time seen: 05/05/20 15:38 Interval history: Pt is a 75 y/o male we are consulted for managing his diabetes. He feels great after surgery and has tolerated a full liquid diet. He is passing a small amount of gas but no BM. He is eating and drinking well. Pt denies nausea, vomiting, fevers, chills, constipation, diarrhea, chest pain, sob, or abdominal pain. Review of Systems Review of Systems: All systems reviewed & are unremarkable except as noted in HPI and below Exam Narrative: Exam Narrative: General: Well developed well nourished patient in NAD HEENT: normocephalic Neck: supple Neuro: Alert and oriented x4 CV:RRR Resp:CTA Abd: Soft, non distended.Positive bowel sounds. incision site intact without bleeding or discharge. Extremities: No swelling, erythema, or pain to palpation. Objective Data Vital Signs Vital Signs: Vital Signs - 24 hr 05/04/20 20:00 05/05/20 00:00 05/05/20 04:00 Temperature 97.4 F L 97.2 F L 97.1 F L Pulse Rate 72 57 L 61 Respiratory Rate 18 18 18 Blood Pressure 128/70 123/64 117/65 Pulse Oximetry 97 96 97 05/05/20 14:00 Temperature 97.3 F L Pulse Rate 60 Respiratory Rate 20 Blood Pressure 120/68 Pulse Oximetry 97 Intake/Output Intake/Output: Intake & Output 05/02/20 05/03/20 05/04/20 05/05/20 23:59 23:59 23:59 23:59 Intake Total 405 2730 Output To
[2020-05-05 17:48] LABS: Glucose Point of Care 145 (65-105)
[2020-05-05 19:40] VITALS: O2SAT 96
[2020-05-05] MEDS: SIMVASTATIN 20 MG TABLET 40 MG PO (20:15)
[2020-05-05 22:00] VITALS: BP 141/63; PULSE 70; RESP 20; TEMP 37.4; O2SAT 96
[2020-05-05 22:56] LABS: Glucose Point of Care 214 (65-105)
[2020-05-06] MEDS: ACETAMINOPHEN 500 MG TABLET 1000 MG PO ×2 (01:59→08:59)
[2020-05-06 06:00] VITALS: BP 139/74; PULSE 61; RESP 20; TEMP 37; O2SAT 96
[2020-05-06 06:25] LABS: Hematocrit 31.8 % (42.0-52.0); Hemoglobin 10.5 g/dL (14.0-18.0); Mean Corpuscular Hemoglobin 30.8 pg (26-34); Mean Corpuscular Volume 93.3 fl (80-100); Mean Platelet Volume 10.6 fl (7.4-10.4); Platelet Count Result 273 k/mm3 (150-375); Red Blood Count 3.41 M/mm3 (4.6-6.20); Red Cell Distribution Width 13.1 % (11.5-14.5); White Blood Count 11.7 K/mm3 (4.5-10.0)
[2020-05-06 06:41] LABS: Anion Gap 5 mmol/L (8-16); Blood Urea Nitrogen 15 mg/dL (9-20); Carbon Dioxide 30 mmol/L (22-30); Chloride 106 mmol/L (98-107); Estimated CRCL calculation 52 ml/min; Estimated Glomerular Filt Rate 59; Glucose 146 mg/dL (75-110); Potassium 4.4 mmol/L (3.4-5.0); Sodium 141 mmol/L (137-145)
[2020-05-06] MEDS: ENOXAPARIN 40 MG/0.4 ML SYRINGE SUB-Q (08:59)
[2020-05-06] MEDS: PANTOPRAZOLE 40 MG TABLET PO (08:59)
[2020-05-06] MEDS: CHOLECALCIFEROL 1,000 UNITS TABLET 2000 UNITS PO (08:59)
--- NOTE | 2020-05-06 09:15 | PM.IMPN ---
Progress Note: A&P Assessment and Plan (1) S/P colectomy: Code(s): Z90.49 - Acquired absence of other specified parts of digestive tract Status: Acute Assessment and Plan: ------Post op day #2 and doing well. He has tolerated full liquids and plans to increase his diet soon. he has had a bowel movement and passing gas. Pain management and DVT prophylaxis per sx. Patient is medically stable for discharge once surgical needs are met, discharge plan will be made by the surgical team. (2) Renal failure: Qualifiers: Renal failure chronicity: unspecified chronicity Qualified Code(s): N19 - Unspecified kidney failure Code(s): N19 - Unspecified kidney failure Status: Chronic Assessment and Plan: ------- Chronic renal failure stage 3 patient appears to be at his baseline. Continue to monitor. (3) Anemia: Qualifiers: Anemia type: unspecified type Qualified Code(s): D64.9 - Anemia, unspecified Code(s): D64.9 - Anemia, unspecified Status: Acute Assessment and Plan: ------ Appears to be chronic and stable. (4) Diabetes mellitus: Qualifiers: Diabetes mellitus type: type 2 Diabetes mellitus activities counselor insulin use: with skilled nursing use Diabetes mellitus complication status: with other specified complication Qualified Code(s): E11.69 - Type 2 diabetes mellitus with other specified complication; Z79.4 - [facility] (current) use of insulin Code(s): E11.9 - Type 2 diabetes mellitus without complications Status: Chronic Assessment and Plan: -----Pt states he is low around 50-60 in the morning and higher in the evening. I did discuss with him and the that this is too low and his regimen may need to be changed outpt. For now, we are going to continue what we are doing until he gets to a full diet. Last glucose 146. Will do SSI at this time. he is going to start eating a regular diet so I will give him a small dose of long- acting insulin. He usually takes it in the morning so I will give him some now (5) HTN (hypertension): Code(s): I10 - Essential (primary) hypertension Status: Chronic Assessment and Plan: last bp 139/74. Will restart lisinopril (6) Ulcerative pancolitis: Code(s): K51.00 - Ulcerative (chronic) pancolitis without complications Status: Acute Assessment and Plan: ----- Continue with lialda. He will need to bring from home but pt is likey d/c soon (7) HLD (hyperlipidemia): Code(s): E78.5 - Hyperlipidemia, unspecified Status: Chronic Assessment and Plan: ---- continue with simvastatin Subjective Date/time seen: 05/06/20 09:15 Interval history: Pt is a 75 y/o male here for colectomy and we are consulted for his diabetes. He feels great today and wants to go home. He has not eaten anything today because he simply does not want any more full liquids. He has had no nausea, vomiting or significant abdominal pain. He has been passing gas and had a few bowel movements. Patient denies chest pain, shortness of breath, or fevers. Exam Narrative: Exam Narrative: General: Well developed well nourished patient in NAD HEENT: normocephalic Neck: supple Neuro: Alert and oriented x4 CV:RRR Resp:CTA Abd: Soft, non distended.Positive bowel sounds. incision sites intact without bleeding or discharge. Extremities: No swelling, erythema, or pain to palpation. Objective Data Vital Signs Vital Signs: Vital Signs - 24 hr 05/05/20 14:00 05/05/20 19:40 05/05/20 22:00 Temperature 97.3 F L 99.3 F Pulse Rate 60 70 Respiratory Rate 20 20 Blood Pressure 120/68 141/63 H Pulse Oximetry 97 96 96 05/06/20 06:00 Temperature 98.6 F Pulse Rate 61 Respiratory Rate 20 Blood Pressure 139/74 Pulse Oximetry 96 Intake/Output Intake/Output: Intake & Output 05/03/20 05/04/20 05/05/20 05/06/20 23:59 23:59 23:59
[2020-05-06 09:32] LABS: Glucose Point of Care 141 (65-105)
[2020-05-06 10:51] LABS: Hemoglobin A1C 6.3 % (<5.7)
--- NOTE | 2020-05-06 11:52 | PM.DS ---
DS: Admitting Diagnosis Admitting Diagnosis Admitting Diagnosis: SIGMOID TUBULLVILLOUS ADENOMA DS: Discharge Diagnosis Discharge Diagnosis (1) Adenocarcinoma of sigmoid colon: Code(s): C18.7 - Malignant neoplasm of sigmoid colon Status: Acute Assessment and Plan: [id number] mucinous adenocarcinoma. 0/15 lymph nodes positive. Stage IIa. (2) Ulcerative pancolitis: Code(s): K51.00 - Ulcerative (chronic) pancolitis without complications Status: Acute (3) HTN (hypertension): Code(s): I10 - Essential (primary) hypertension Status: Chronic (4) HLD (hyperlipidemia): Code(s): E78.5 - Hyperlipidemia, unspecified Status: Chronic (5) Diabetes mellitus: Qualifiers: Diabetes mellitus type: type 2 Diabetes mellitus correction insulin use: with adjunct faculty for medical terminology use Diabetes mellitus complication status: with other specified complication Qualified Code(s): E11.69 - Type 2 diabetes mellitus with other specified complication; Z79.4 - [facility] (current) use of insulin Code(s): E11.9 - Type 2 diabetes mellitus without complications Status: Chronic DS: Summary Hospital Course Reason for hospitalization: Tubulovillous adenoma of sigmoid colon. Hospital Course: This is a 75-year-old man who presented with a polyp in his sigmoid colon. He has a history of ulcerative colitis and recently underwent colonoscopy with Dr. Carver. He was found to have a mass in his sigmoid colon that was biopsied and tattooed. Pathology showed evidence of tubulovillous adenoma with high-grade dysplasia. He presented for elective hand assisted laparoscopic sigmoid colectomy on 05/04/2020. Surgery was uncomplicated and he was admitted to the hospital postoperatively for recovery. He was initially started on a clear liquid diet and his diet and activity were gradually advanced as tolerated. On postop day 1 his pain was well controlled and he was hemodynamically stable. He was advanced to a full liquid diet and seemed to tolerate this well. His bowels began moving and on postop day 2 he was advanced to a soft diabetic diet. He was ambulating well with minimal discomfort and was remaining hemodynamically stable. He was then discharged on postop day 2. Pathology came back on 05/06 and showed evidence mucinous adenocarcinoma. 0/15 lymph nodes were positive. This was a T4 a N0 M0 cancer. This would place him as a stage IIB colon cancer. Other markers are still pending. His CEA preoperatively was 1.1. Status at Discharge Functional status at discharge: independent ambulation Overall status at discharge: patient is progressing back to baseline Time Spent with Patient Time attestation: Total time spent providing and/or coordinating discharge services: Time spent: Less than 30 minutes Exam Const: General: no acute distress Limitations: no limitations Neck: Neck: supple and no JVD Resp: Effort & Inspection: normal respiratory effort Auscultation: clear to auscultation bilaterally Cardio: Rate: regular rate Rhythm: regular rhythm GI: Inspection: non-distended and incision ( intact with glue) GI Palp: Yes Soft to palpation and Yes Tenderness to palpation present (GI) ( Incisional) Auscultation: normal bowel sounds Skin: General skin exam: normal color and no rashes or lesions noted Psych: Mental Status: mental status grossly normal DS: Data Data Completed and Pending Completed studies during hospitalization: Pending at discharge 05/04/20 11:26 Surgical [PTH] Routine Labs on day of discharge: Labs from last 24 hours 05/06/20 05/06/20 05/06/20 10:09 08:57 05:41 WBC RBC Hgb Hct MCV MCH MCHC RDW Plt Count MPV Sodium 141 Potassium 4.4 Chloride 106 Carbon Dioxide 30 Anion Gap 5 L BUN 15 D Creatinine 1.20 Estim Creat Clear Calc 52 Estimated GFR 59 Glucose 146 H POC Capillary Glucose 141 H Hemoglob
[2020-05-06] MEDS: lisinopriL 20 MG TABLET PO (12:19)
[2020-05-06 12:54] LABS: Glucose Point of Care 142 (65-105)
== END 2020-05-06 13:10 | disposition home or self-care (01) | DRG 330 ==
LOC: ANH3MEDSUR 13:35
PROVIDERS: Physician Assistant; Admitting Provider Surgery; PCP Internal Medicine; Visit Provider Surgery
PROC: 0D1E4Z4 Bypass Large Intestine to Cutaneous, Percutaneous Endoscopic Approach (ICD-10-PCS; principal; 2020-05-04 09:30)
DX: C18.7 Malignant neoplasm of sigmoid colon (principal); K51.00 Ulcerative (chronic) pancolitis without complications; E11.22 Type 2 diabetes mellitus with diabetic chronic kidney disease; I12.9 Hypertensive chronic kidney disease with stage 1 through stage 4 chronic kidney disease, or unspecified chronic kidney disease; N18.30 Chronic kidney disease, stage 3 unspecified; D64.9 Anemia, unspecified; E78.5 Hyperlipidemia, unspecified; Z28.21 Immunization not carried out because of patient refusal; Z79.4 Long term (current) use of insulin; Z87.891 Personal history of nicotine dependence; Z96.659 Presence of unspecified artificial knee joint; Z96.662 Presence of left artificial ankle joint
CPT/HCPCS: 36415; 80048; 82378; 83036; 85025; 85027; 88309; A9270; C1729; C9290; J0690; J1100; J1170; J1650; J1885; J2370; J2405; J2704; J2710; J3010; J7030; J7120

== ENCOUNTER → 2021-08-01 14:45 | Outpatient (REF) | payer MEDICARE, SELFPAY | LOC: ANHLAB 14:45 | PROVIDERS: PCP Internal Medicine; Visit Provider Nurse Practitioner | DX: C44.729 Squamous cell carcinoma of skin of left lower limb, including hip (principal) | CPT/HCPCS: 88305 ==

== ENCOUNTER → 2021-09-19 09:35 | Outpatient (REF) | payer MEDICARE, SELFPAY | LOC: ANHLAB 09:35 | PROVIDERS: PCP Internal Medicine; Visit Provider Nurse Practitioner | DX: C44.729 Squamous cell carcinoma of skin of left lower limb, including hip (principal) | CPT/HCPCS: 88305; 88331 ==

== ENCOUNTER 2022-06-06 00:32 | Day surgery (SDC) | payer MEDICARE, SELFPAY ==
[2022-05-29 14:08] VITALS: BMI 25.0
[2022-06-06 08:06] VITALS: BP 116/65; PULSE 76; RESP 20; TEMP 36.5; O2SAT 99; BMI 25.4
[2022-06-06] MEDS: LACTATED RINGERS 1,000 ML 150 ML IV CONT (08:19)
[2022-06-06 08:20] LABS: Glucose Point of Care 139 mg/dl (65-105)
--- NOTE | 2022-06-06 08:22 | WPDANESEPPF ---
Anes - Initial Pre Proc Eval Procedure: Operation Date: 06/06/22 09:30 Proposed Procedures p Colonoscopy - Alvaro Jaramillo MD Date/Time: 06/06/22 08:22 Surgeon: Alvaro Jaramillo MD Pre Op Diagnosis: ulcerative pancolitis, Hx of colon cancer Patient Data Age: 77 Gender: M Height: 1.91 m Weight: 92.5 kg Last Vital Signs Temp 97.7 F 06/06/22 08:06 Pulse 76 06/06/22 08:06 Resp 20 06/06/22 08:06 BP 116/65 06/06/22 08:06 Pulse Ox 99 06/06/22 08:06 O2 Del Method Room Air 06/06/22 08:06 Allergies Allergy/AdvReac Type Severity Reaction Status Date / Time No Known Allergies Allergy Unknown Verified 06/06/22 08:04 Home Medications Medication Instructions Recorded Confirmed Type omega 1-kgq-cmp-fish oil 1,000 mg 1 cap PO BID 01/19/21 05/29/22 History (120 mg-180 mg) capsule (Fish Oil) aspirin 81 mg capsule 81 mg PO DAILY 08/22/21 05/29/22 History simvastatin 40 mg tablet 40 mg PO HS #90 tabs 03/10/22 05/29/22 Rx mesalamine 1.2 gram tablet,delayed See Rx Instructions .Route 03/16/22 06/06/22 Rx release .COMPLEX #90 tabs lisinopril 20 mg tablet See Rx Instructions .Route 04/20/22 05/29/22 Rx .COMPLEX #90 tabs insulin degludec 200 unit/mL (3 32 unit (0.16 mL) subcut QAM #9 mL 04/24/22 05/29/22 Rx mL) subcutaneous pen (Tresiba FlexTouch U-200 insulin) Laboratory Tests 06/06/22 08:18 POC Capillary Glucose 139 mg/dl H mg/dl (65-105) Patient hx anesthesia problems: none Family hx anesthesia problems: none Results Review: All pre-operative results and documents have been reviewed as part of the pre-operative evaluation. [facility] Past Medical History Medical History Abnormal colonoscopy Anemia Arthritis Crohn's disease Crohn's disease with complication Diabetes mellitus Diarrhea Early satiety Erosive gastritis HLD (hyperlipidemia) HTN (hypertension) Renal failure stage III Ulcerative pancolitis Weight loss Surgical History Surgical History H/O colectomy 05/04/20: BARTOLOME sigmoid colectomy History of ankle surgery right ankle History of esophagogastroduodenoscopy (EGD) History of removal of pigmented skin lesion Total knee replacement status Family History Family History Father , 72 Lung cancer Mother , 93 Diabetes mellitus Heart disease Social History Social History Social History: the patient is to Dayan otherwise known as Yi and she is a durable power patent attorney for healthcare. he is a full code. They have 3 children together. He is retired. He quit smoking about 30 occasionally drinks alcohol. No drugs, Smoking packs per day: 1 Smoking cigarettes per day: 20.0 Years smoked: 30 Smoking pack-years: 30.00 Smoking status: Former smoker Tobacco type: cigarettes Second hand tobacco smoke exposure: No Smoking end date: 08/06/84 Alcohol intake: current Drinks per week: 6 Alcohol use details: socially Substance use: never Substance use type: does not use Living arrangements: alone Gender identity (if verbalized by the patient): Male Spiritual care concerns: No Anes - Eval Final PreProcedure Day of Procedure 06/06/22 08:22 Patient weight: normal Heart: regular rate and rhythm Lungs: clear to auscultation Airway: Mallampati scale class II Neurological: alert and oriented Last oral intake: >/= 8 hours ASA classification: III Emergent: no Anesthetic plan: proceed Anesthesia type and monitoring: general GIVS and standard monitoring Results Review: All pre-operative results and documents have been reviewed as part of the pre-operative evaluation. Informed Consent: The patient's anesthetic plan and its attendant risks
--- NOTE | 2022-06-06 08:43 | PM.HPGS ---
History of Present Illness History of Present Illness Consent: Risks, benefits, and alternatives have been discussed and questions answered. Patient agrees to proceed with procedure. Chief complaint: ulcerative pancolitis, Hx of colon cancer Narrative: Anatoliy Alcantara is a 77 year old male with history of colitis on mesalamine, also had laparoscopic sigmoid colectomy with colorectal anastomosis on 05/04/[address] Nevarez. 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 0 out of 16 lymph nodes were positive. No colonoscopy since. He denies any diarrhea or blood in stools. Review of Systems Constitutional: Constitutional: Denies headache(s) and Denies weakness Eyes: Eyes: Denies blurry vision ENT: Reports Normal hearing present, Denies headache(s) and Denies neck pain Cardiovascular: Cardiovascular: Denies chest pain and Denies dyspnea Respiratory: Respiratory: Denies dyspnea Gastrointestinal: Gastrointestinal: Reports no additional gastrointestinal complaints Genitourinary: Genitourinary: Denies dysuria Musculoskeletal: Musculoskeletal: Denies neck pain Integumentary/Breasts: Skin/Breast: Denies dry skin Neurologic: Reports Normal hearing present, Denies headache(s) and Denies weakness Psychiatric: Psychiatric: Denies anxiety Endocrine: Endocrine: Denies change in body appearance Hematologic/Lymphatic: Hematologic/Lymphatic: Denies easy bleeding Allergic/Immunologic: Allergic/Immunologic: Denies urticaria PMFSH Past Medical History Medical History Abnormal colonoscopy Anemia Arthritis Crohn's disease Crohn's disease with complication Diabetes mellitus Diarrhea Early satiety Erosive gastritis HLD (hyperlipidemia) HTN (hypertension) Renal failure stage III Ulcerative pancolitis Weight loss Surgical History Surgical History H/O colectomy 05/04/20: BARTOLOME sigmoid colectomy History of ankle surgery right ankle History of esophagogastroduodenoscopy (EGD) History of removal of pigmented skin lesion Total knee replacement status Family History Family History Father , 72 Lung cancer Mother , 93 Diabetes mellitus Heart disease Social History Social History Social History: the patient is to Dayan otherwise known as Yi and she is a durable power deputy prosecuting attorney for healthcare. he is a full code. They have 3 children together. He is retired. He quit smoking about 30 occasionally drinks alcohol. No drugs, Smoking packs per day: 1 Smoking cigarettes per day: 20.0 Years smoked: 30 Smoking pack-years: 30.00 Smoking status: Former smoker Tobacco type: cigarettes Second hand tobacco smoke exposure: No Smoking end date: 08/06/84 Alcohol intake: current Drinks per week: 6 Alcohol use details: socially Substance use: never Substance use type: does not use Living arrangements: alone Gender identity (if verbalized by the patient): Male Spiritual care concerns: No Meds Home Medications and Allergies Home Medications Medication Instructions Recorded Confirmed Type omega 6-mau-nbc-fish oil 1,000 mg 1 cap PO BID 01/19/21 05/29/22 History (120 mg-180 mg) capsule (Fish Oil) aspirin 81 mg capsule 81 mg PO DAILY 08/22/21 05/29/22 History simvastatin 40 mg tablet 40 mg PO HS #90 tabs 03/10/22 05/29/22 Rx mesalamine 1.2 gram tablet,delayed See Rx Instructions .Route 03/16/22 06/06/22 Rx release .COMPLEX #90 tabs lisinopril 20 mg tablet See Rx Instructions .Route 04/20/22 05/29/22 Rx .COMPLEX #90 tabs insulin degludec 200 unit/mL (3 32 unit (0.16 mL) subcut QAM #9 mL 04/24/22 05/29/22 Rx mL) subcutaneous pen (Tresiba
[2022-06-06 08:57] VITALS: BP 94/67; PULSE 69; RESP 20; O2SAT 100
[2022-06-06 09:07] VITALS: BP 101/62; PULSE 63; RESP 20; O2SAT 100
[2022-06-06 09:17] VITALS: BP 107/68; PULSE 60; RESP 20; O2SAT 99
[2022-06-06 09:33] LABS: Glucose Point of Care 122 mg/dl (65-105)
== END 2022-06-06 09:30 | disposition home or self-care (01) ==
PROVIDERS: PCP Internal Medicine; Visit Provider Internal Medicine Gastroenterology
PROC: 0DJD8ZZ Inspection of Lower Intestinal Tract, Via Natural or Artificial Opening Endoscopic (ICD-10-PCS; CPT 45378; principal; 2022-06-06 09:30)
DX: K51.00 Ulcerative (chronic) pancolitis without complications (principal); K57.30 Diverticulosis of large intestine without perforation or abscess without bleeding; K64.8 Other hemorrhoids; Z98.0 Intestinal bypass and anastomosis status; Z90.49 Acquired absence of other specified parts of digestive tract; Z85.038 Personal history of other malignant neoplasm of large intestine; I12.9 Hypertensive chronic kidney disease with stage 1 through stage 4 chronic kidney disease, or unspecified chronic kidney disease; N18.30 Chronic kidney disease, stage 3 unspecified; E78.5 Hyperlipidemia, unspecified; E11.9 Type 2 diabetes mellitus without complications; Z79.4 Long term (current) use of insulin; Z79.82 Long term (current) use of aspirin; Z87.891 Personal history of nicotine dependence
CPT/HCPCS: 45380; 82948; 88305; J2704; J7120

== ENCOUNTER 2022-07-04 07:00 | Outpatient (NON) | payer MEDICARE, SELFPAY | END 2022-07-04 07:01 | disposition home or self-care (01) | LOC: ANHLAB 07-05 11:35 | PROVIDERS: PCP Internal Medicine; Visit Provider Nurse Practitioner | DX: C44.719 Basal cell carcinoma of skin of left lower limb, including hip (principal); C44.329 Squamous cell carcinoma of skin of other parts of face | CPT/HCPCS: 88305 ==

== ENCOUNTER 2022-08-21 14:21 | Outpatient (NON) | payer MEDICARE, SELFPAY | END 2022-08-21 14:22 | disposition home or self-care (01) | LOC: ANHLAB 14:21 | PROVIDERS: PCP Internal Medicine; Visit Provider Nurse Practitioner | DX: C44.719 Basal cell carcinoma of skin of left lower limb, including hip (principal); C44.329 Squamous cell carcinoma of skin of other parts of face | CPT/HCPCS: 88305; 88331 ==

== ENCOUNTER 2022-11-28 09:36 | Outpatient (CLI) | payer MEDICARE, SELFPAY ==
[2022-11-28 10:16] LABS: Hematocrit 37.4 % (42.0-52.0); Hemoglobin 12.4 g/dL (14.0-18.0); Mean Corpuscular HGB Conc 33.2 g/dl (32-36); Mean Corpuscular Hemoglobin 32.7 pg (26-34); Mean Corpuscular Volume 98.7 fl (80-100); Mean Platelet Volume 11.5 fl (7.4-10.4); Platelet Count Result 186 k/mm3 (150-375); Red Blood Count 3.79 M/mm3 (4.6-6.20); Red Cell Distribution Width 12.8 % (11.5-14.5); White Blood Count 8.2 K/mm3 (4.5-10.0)
[2022-11-28 10:40] LABS: Alanine Aminotransferase 154 U/L (6-50); Albumin Level 4.2 g/dL (3.5-5.1); Alkaline Phosphatase 153 U/L (38-126); Anion Gap 5 mmol/L (8-16); Aspartate Amino Transferase 151 U/L (17-59); Bilirubin,Total 0.7 mg/dL (0.2-1.3); Blood Urea Nitrogen 28 mg/dL (9-20); Calcium 9.3 mg/dL (8.4-10.2); Carbon Dioxide 30 mmol/L (22-30); Chloride 104 mmol/L (98-107); Estimated Glomerular Filt Rate 45; Glucose 182 mg/dL (65-110); Potassium 4.9 mmol/L (3.4-5.0); Sodium 139 mmol/L (137-145)
[2022-11-28 11:07] LABS: Erythrocyte Sedimentation Rate 41 mm/hr (0-20)
== END 2022-11-28 09:37 | disposition home or self-care (01) ==
PROVIDERS: PCP Family Medicine; Visit Provider Internal Medicine Gastroenterology
DX: K51.00 Ulcerative (chronic) pancolitis without complications (principal)
CPT/HCPCS: 36415; 80053; 85027; 85652; 86140

== ENCOUNTER 2022-12-05 09:28 | Outpatient (CLI) | payer MEDICARE, SELFPAY ==
--- NOTE | ~2022-12-05 | US_ITS ---
Limited Abdominal Sonogram: Real-time sonographic imaging of the right upper quadrant was performed. Clinical History: Abnormal liver enzymes Findings: The liver appears echogenic, with no evidence of mass lesion or bile duct dilatation. Main portal vein demonstrates normal direction of flow. The gallbladder is contracted, probable small sto danny and/or sludge. Gallbladder wall is thickened up to 6 cm. The common bile duct measures 6 mm. The visualized pancreas, aorta, and IVC are unremarkable. Impression: Probable gallbladder sludge and small stones within contracted gallbladder. Mild gallbladder wall thi ckening may be due to contracted state. Correlate clinically for acute cholecystitis. Consider HIDA s can as indicated. Fatty infiltration of liver. Reviewed, dictated and finalized at location M. Impression: Probable gallbladder sludge and small stones within contracted gallbladder. Mil d gallbladder wall thickening may be due to contracted state. Correlate clinica lly for acute cholecystitis. Consider HIDA scan as indicated. Fatty infiltration of liver.
== END 2022-12-05 09:29 | disposition home or self-care (01) ==
PROVIDERS: PCP Family Medicine; Visit Provider Internal Medicine Medical Oncology
DX: R94.5 Abnormal results of liver function studies (principal); K76.0 Fatty (change of) liver, not elsewhere classified
CPT/HCPCS: 76705

== ENCOUNTER 2023-05-31 07:34 | Day surgery (SDC) | payer MEDICARE, SELFPAY ==
[2023-05-31 08:25] VITALS: BP 130/79; PULSE 86; RESP 20; TEMP 36.7; O2SAT 98
[2023-05-31 08:50] LABS: Glucose Point of Care 99 mg/dl (65-105)
[2023-05-31] MEDS: LACTATED RINGERS 1,000 ML 150 ML IV CONT (08:51)
--- NOTE | 2023-05-31 09:21 | PM.HPGS ---
History of Present Illness History of Present Illness Consent: Risks, benefits, and alternatives have been discussed and questions answered. Patient agrees to proceed with procedure. Chief complaint: Malignant Neoplasm of Sigmoid Colon Narrative: Anatoliy Alcantara is a 78 year old male with history of colitis on mesalamine, also had laparoscopic sigmoid colectomy with colorectal anastomosis on 05/04/[address] Nevarez. 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 0 out of 16 lymph nodes were positive. Last colonoscopy 06/2022 normal, sigmoid anastomosis unremarkable and also normal random colon bx. He is asymptomatic, also had elevated liver enzymes but stable (abdominal mri 2019 normal). Review of Systems Constitutional: Constitutional: Denies headache(s) and Denies weakness Eyes: Eyes: Denies blurry vision ENT: Reports Normal hearing present, Denies headache(s) and Denies neck pain Cardiovascular: Cardiovascular: Denies chest pain and Denies dyspnea Respiratory: Respiratory: Denies dyspnea Gastrointestinal: Gastrointestinal: Reports no additional gastrointestinal complaints Genitourinary: Genitourinary: Denies dysuria Musculoskeletal: Musculoskeletal: Denies neck pain Integumentary/Breasts: Skin/Breast: Denies dry skin Neurologic: Reports Normal hearing present, Denies headache(s) and Denies weakness Psychiatric: Psychiatric: Denies anxiety Endocrine: Endocrine: Denies change in body appearance Hematologic/Lymphatic: Hematologic/Lymphatic: Denies easy bleeding Allergic/Immunologic: Allergic/Immunologic: Denies urticaria PMFSH Past Medical History Medical History Abnormal colonoscopy Anemia Arthritis Crohn's disease Crohn's disease with complication Diabetes mellitus Diarrhea Early satiety Erosive gastritis Fatty liver HLD (hyperlipidemia) HTN (hypertension) Renal failure stage III Ulcerative pancolitis Weight loss Surgical History Surgical History H/O colectomy 05/04/20: BARTOLOME sigmoid colectomy History of ankle surgery right ankle History of esophagogastroduodenoscopy (EGD) History of removal of pigmented skin lesion Total knee replacement status Family History Family History Father , 72 Lung cancer Mother , 93 Diabetes mellitus Heart disease Social History Social History Social History: The patient is for ~ 2 months He is a full code. He has 3 children. He is retired. He quit smoking about 30 years ago. occasionally drinks alcohol. No drugs. Smoking packs per day: 1 Smoking cigarettes per day: 20.0 Years smoked: 30 Smoking pack-years: 30.00 Smoking status: Former smoker Tobacco type: cigarettes Second hand tobacco smoke exposure: No Smoking end date: 08/06/84 Additional smoking assessment comments: quit 30 years ago Alcohol intake: current Drinks per week: 10 Alcohol use details: socially Substance use: never Substance use type: does not use Lack of Transportation: No Lack of Food: Never True Current Housing: Decline to Answer Concerned About Future Housing: No Difficulty Paying Gas/Electric Bills: No Difficulty Paying for Meds: No Currently Unemployed: No Education: Bachelor's Degree Difficulty w/ Childcare or Family Care: No Living arrangements: alone Occupation/Education: retired Gender identity (if verbalized by the patient): Male Spiritual care concerns: No Meds Home Medications and Allergies Home Medications Medication Instructions Recorded Confirmed Type omega 4-dsn-xzr-fish oil 1,000 mg 1 cap PO BID 01/19/21 05/31/23 History (120 mg-180 mg) capsu
--- NOTE | 2023-05-31 09:24 | WPDANESEPPF ---
Anes - Initial Pre Proc Eval Procedure: Operation Date: 05/31/23 10:00 Proposed Procedures p Colonoscopy - Alvaro Jaramillo MD Date/Time: 05/31/23 09:24 Surgeon: Alvaro Jaramillo MD Pre Op Diagnosis: Malignant Neoplasm of Sigmoid Colon Patient Data Age: 78 Gender: M Height: 1.91 m Weight: 92.5 kg Last Vital Signs Temp 36.7 C 05/31/23 08:25 Pulse 86 05/31/23 08:25 Resp 20 05/31/23 08:25 BP 130/79 05/31/23 08:25 Pulse Ox 98 05/31/23 08:25 O2 Del Method Room Air 05/31/23 08:25 Allergies Allergy/AdvReac Type Severity Reaction Status Date / Time No Known Allergies Allergy Unknown Verified 05/31/23 08:30 Home Medications Medication Instructions Recorded Confirmed Type omega 1-ohn-hwj-fish oil 1,000 mg 1 cap PO BID 01/19/21 05/31/23 History (120 mg-180 mg) capsule (Fish Oil) aspirin 81 mg capsule 81 mg PO DAILY 08/22/21 05/31/23 History insulin degludec 200 unit/mL (3 35 unit (0.175 mL) subcut QAM #9 mL 03/12/23 05/31/23 Rx mL) subcutaneous pen (Tresiba FlexTouch U-200 insulin) mesalamine 1.2 gram tablet,delayed See Rx Instructions .Route 03/22/23 05/31/23 Rx release .COMPLEX #270 tabs lisinopril 20 mg tablet See Rx Instructions .Route 04/10/23 05/31/23 Rx .COMPLEX #90 tabs blood sugar diagnostic (OneTouch #100 ea 05/22/23 05/31/23 Rx Verio test strips) rosuvastatin 40 mg tablet 40 mg PO DAILY #90 tabs 05/22/23 05/31/23 Rx Laboratory Tests 05/31/23 08:46 POC Capillary Glucose 99 mg/dl (65-105) Patient hx anesthesia problems: none Family hx anesthesia problems: none Results Review: All pre-operative results and documents have been reviewed as part of the pre-operative evaluation. [facility] Past Medical History Medical History Abnormal colonoscopy Anemia Arthritis Crohn's disease Crohn's disease with complication Diabetes mellitus Diarrhea Early satiety Erosive gastritis Fatty liver HLD (hyperlipidemia) HTN (hypertension) Renal failure stage III Ulcerative pancolitis Weight loss Surgical History Surgical History H/O colectomy 05/04/20: BARTOLOME sigmoid colectomy History of ankle surgery right ankle History of esophagogastroduodenoscopy (EGD) History of removal of pigmented skin lesion Total knee replacement status Family History Family History Father , 72 Lung cancer Mother , 93 Diabetes mellitus Heart disease Social History Social History Social History: The patient is for ~ 2 months He is a full code. He has 3 children. He is retired. He quit smoking about 30 years ago. occasionally drinks alcohol. No drugs. Smoking packs per day: 1 Smoking cigarettes per day: 20.0 Years smoked: 30 Smoking pack-years: 30.00 Smoking status: Former smoker Tobacco type: cigarettes Second hand tobacco smoke exposure: No Smoking end date: 08/06/84 Additional smoking assessment comments: quit 30 years ago Alcohol intake: current Drinks per week: 10 Alcohol use details: socially Substance use: never Substance use type: does not use Lack of Transportation: No Lack of Food: Never True Current Housing: Decline to Answer Concerned About Future Housing: No Difficulty Paying Gas/Electric Bills: No Difficulty Paying for Meds: No Currently Unemployed: No Education: Bachelor's Degree Difficulty w/ Childcare or Family Care: No Living arrangements: alone Occupation/Education: retired Gender identity (if verbalized by the patient): Male Spiritual care concerns: No Anes - Eval Final PreProcedure Day of Procedure 05/31/23 09:24 Patient weight: normal Heart: regular rate and rhythm Lungs: clear to auscultation Airwa
[2023-05-31 09:40] VITALS: BP 89/54; PULSE 80; RESP 16; O2SAT 98
[2023-05-31 09:50] VITALS: BP 91/63; PULSE 68; RESP 20; O2SAT 98
[2023-05-31 10:00] VITALS: BP 109/64; PULSE 64; RESP 18; O2SAT 99
[2023-05-31 10:10] VITALS: BP 118/86; PULSE 77; RESP 18; O2SAT 100
--- NOTE | 2023-05-31 10:16 | WPDANESPN ---
Anes - Prog Note Post-Op Date/Time: 05/31/23 10:16 Cardiovascular status: normal Respiratory status: normal Airway patency: baseline Mental status: baseline Post-Op hydration status: normal Vital Signs: Last Vital Signs Temp 36.7 C 05/31/23 08:25 Pulse 77 05/31/23 10:10 Resp 18 05/31/23 10:10 BP 118/86 05/31/23 10:10 Pulse Ox 100 05/31/23 10:10 O2 Del Method Room Air 05/31/23 10:10 Pain Score (VAS): 0/10 I/O: Intake & Output 05/30/23 05/31/23 05/31/23 23:59 07:59 15:59 Intake Total 300 Balance 300 05/31/23 08:46 POC Capillary Glucose 99 Patient Feedback: Patient satisfied with anesthetic care.
== END 2023-05-31 10:12 | disposition home or self-care (01) ==
PROVIDERS: PCP Family Medicine; Visit Provider Internal Medicine Gastroenterology
PROC: 0DJD8ZZ Inspection of Lower Intestinal Tract, Via Natural or Artificial Opening Endoscopic (ICD-10-PCS; CPT 45378; principal; 2023-05-31 10:00)
DX: Z85.038 Personal history of other malignant neoplasm of large intestine (principal); K52.9 Noninfective gastroenteritis and colitis, unspecified; K57.30 Diverticulosis of large intestine without perforation or abscess without bleeding; K64.8 Other hemorrhoids
CPT/HCPCS: 45380

== ENCOUNTER 2023-05-31 11:50 | Outpatient (NON) | payer MEDICARE, SELFPAY | END 2023-05-31 11:51 | disposition home or self-care (01) | LOC: ANHLAB 06-01 11:52 | PROVIDERS: PCP Family Medicine; Visit Provider Internal Medicine Gastroenterology | DX: C18.7 Malignant neoplasm of sigmoid colon (principal) | CPT/HCPCS: 88305 ==

== ENCOUNTER 2023-07-05 16:31 | Outpatient (NON) | payer MEDICARE, SELFPAY | END 2023-07-05 16:32 | disposition home or self-care (01) | LOC: ANHLAB 16:32 | PROVIDERS: PCP Family Medicine; Visit Provider Nurse Practitioner | DX: C44.329 Squamous cell carcinoma of skin of other parts of face (principal) | CPT/HCPCS: 88305 ==

== ENCOUNTER 2023-08-20 14:21 | Outpatient (NON) | payer MEDICARE, SELFPAY | END 2023-08-20 14:22 | disposition home or self-care (01) | LOC: ANHLAB 14:21 | PROVIDERS: PCP Family Medicine; Visit Provider Nurse Practitioner | DX: C44.329 Squamous cell carcinoma of skin of other parts of face (principal) | CPT/HCPCS: 88305; 88331 ==

== ENCOUNTER 2024-07-23 01:43 | Day surgery (SDC) | payer MEDICARE, SELFPAY ==
[2024-07-17 08:38] VITALS: BMI 27.1
[2024-07-23 11:55] VITALS: BP 144/62; PULSE 105; RESP 16; TEMP 35.9; O2SAT 100; BMI 26.8
[2024-07-23 12:18] LABS: Glucose Point of Care 70 mg/dl (65-105)
--- NOTE | 2024-07-23 12:24 | P.HP_ITS ---
H&P: [facility] History of Present Illness Date/Time: 07/23/24 12:24 Chief Complaint: History of colorectal cancer -history of ulcerative colitis. Narrative: History of ulcerative colitis on mesalamine diagnosed officially 07/2019 when presented with anemia and malaise. An adenocarcinoma was diagnosed in 2019 and had laparoscopic sigmoid colectomy with colorectal anastomosis on 05/04/[address] Bradley. He has undergone colonoscopy every year by Dr Carver , last one 05/2023 showed mild colitis in cecum/ascending, bx without dysplasia, sigmoid anastomosis unremarkable. He is here for follow up. Review of Systems Review of Systems: All systems reviewed & are unremarkable except as noted in HPI and below PMFSH Past Medical History Medical History Abnormal colonoscopy Anemia Arthritis Crohn's disease Crohn's disease with complication Diabetes mellitus Diarrhea Early satiety Erosive gastritis Fatty liver HLD (hyperlipidemia) HTN (hypertension) Renal failure stage III Ulcerative pancolitis Weight loss Surgical History Surgical History H/O colectomy 05/04/20: BARTOLOME sigmoid colectomy History of ankle surgery right ankle History of esophagogastroduodenoscopy (EGD) History of removal of pigmented skin lesion Total knee replacement status Family History Family History Father , 72 Lung cancer Mother , 93 Diabetes mellitus Heart disease Social History Social History Social History: The patient is for ~ 2 months He is a full code. He has 3 children. He is retired. He quit smoking about 30 years ago. occasionally drinks alcohol. No drugs. Smoking packs per day: 1 Smoking cigarettes per day: 20.0 Years smoked: 30 Smoking pack-years: 30.00 Smoking status: Former smoker Tobacco type: cigarettes Second hand tobacco smoke exposure: No Smoking end date: 08/06/84 Additional smoking assessment comments: quit 30 years ago Alcohol intake: current Drinks per week: 7 Alcohol use details: States they drink about 1 to 2 alcoholic drinks a day Substance use: never Substance use type: does not use Lack of Transportation: No Lack of Food: Never True Current Housing: Decline to Answer Concerned About Future Housing: No Difficulty Paying Gas/Electric Bills: No Difficulty Paying for Meds: No Currently Unemployed: No Education: Bachelor's Degree Difficulty w/ Childcare or Family Care: No Living arrangements: alone Occupation/Education: retired Gender identity (if verbalized by the patient): Male Spiritual care concerns: No Meds Home Medications and Allergies Home Medications ?Medication ?Instructions ?Recorded ?Confirmed ?Type omega 1-tjg-use-fish oil 1,000 mg 1 cap PO BID 01/19/21 07/23/24 History (120 mg-180 mg) capsule (Fish Oil) aspirin 81 mg capsule 81 mg PO DAILY 08/22/21 07/23/24 History blood sugar diagnostic (OneTouch #100 ea 01/16/24 07/17/24 Rx Verio test strips) mesalamine 1.2 gram tablet,delayed See Rx Instructions .Route 03/06/24 07/23/24 Rx release .COMPLEX #270 tabs rosuvastatin 40 mg tablet 40 mg PO DAILY #90 tabs 05/16/24 07/23/24 Rx insulin degludec 200 unit/mL (3 40 unit (0.2 mL) subcut QAM #9 mL 06/06/24 07/23/24 Rx mL) subcutaneous pen (Tresiba FlexTouch U-200 insulin) lisinopril 20 mg tablet See Rx Instructions .Route 06/06/24 07/23/24 Rx .COMPLEX #90 tabs Allergies Allergy/AdvReac Type Severity Reaction Status Date / Time No Known Allergies Allergy Unknown Verified 07/23/24 11:52 Vital Signs Vital Signs - 24 hr 07/23/24 11:55 Temperature 96.7 F L Pulse Rate 105 H Respiratory Rate 16 Blood Pressure 144/62 H Pulse Oximetry 100 Oxygen Delivery Room Air Exam Const: General: cooperative and healthy appearing Resp: Effort & Inspection: normal respiratory effort and able to speak in complete sentences Auscultation: clear to auscultation bilaterally Cardio: Rate: regular rate Rhythm: regular rhythm GI: Inspection: normal to inspection GI Palp: No No hepatosplenomegaly present Auscultation: normal bowel sounds Rectal Exam: deferred Skin: General skin exam: normal color Psych: Appearance: grossly normal Mental Status: mental status grossly normal Assessment and Plan Assessment and plan (1) Ulcerative pancolitis: Code(s): K51.00 - Ulcerative (chronic) pancolitis without complications Status: Acute Assessment and Plan: The patient is deemed a good candidate for the procedure. Consent signed. Will proceed. (2) S/P colectomy: Code(s): Z90.49 - Acquired absence of other specified parts of digestive tract Status: Acute
--- NOTE | 2024-07-23 12:37 | WPDANESEPPF ---
Anes - Initial Pre Proc Eval Procedure: Operation Date: 07/23/24 13:00 Proposed Procedures p Colonoscopy - Tanvir Friend MD Date/Time: 07/23/24 12:37 Surgeon: Tanvir Friend MD Pre Op Diagnosis: hx of cancer Patient Data Age: 79 Gender: M Height: 1.83 m Weight: 89.6 kg Last Vital Signs Temp 35.9 C L 07/23/24 11:55 Pulse 105 H 07/23/24 11:55 Resp 16 07/23/24 11:55 BP 144/62 H 07/23/24 11:55 Pulse Ox 100 07/23/24 11:55 O2 Del Method Room Air 07/23/24 11:55 Allergies Allergy/AdvReac Type Severity Reaction Status Date / Time No Known Allergies Allergy Unknown Verified 07/23/24 11:52 Home Medications ?Medication ?Instructions ?Recorded ?Confirmed ?Type omega 0-tia-brj-fish oil 1,000 mg 1 cap PO BID 01/19/21 07/23/24 History (120 mg-180 mg) capsule (Fish Oil) aspirin 81 mg capsule 81 mg PO DAILY 08/22/21 07/23/24 History blood sugar diagnostic (OneTouch #100 ea 01/16/24 07/17/24 Rx Verio test strips) mesalamine 1.2 gram tablet,delayed See Rx Instructions .Route 03/06/24 07/23/24 Rx release .COMPLEX #270 tabs rosuvastatin 40 mg tablet 40 mg PO DAILY #90 tabs 05/16/24 07/23/24 Rx insulin degludec 200 unit/mL (3 40 unit (0.2 mL) subcut QAM #9 mL 06/06/24 07/23/24 Rx mL) subcutaneous pen (Tresiba FlexTouch U-200 insulin) lisinopril 20 mg tablet See Rx Instructions .Route 06/06/24 07/23/24 Rx .COMPLEX #90 tabs Laboratory Tests 07/23/24 12:02 POC Capillary Glucose 70 mg/dl (65-105) Patient hx anesthesia problems: none Family hx anesthesia problems: none Results Review: All pre-operative results and documents have been reviewed as part of the pre-operative evaluation. [facility] Past Medical History Medical History Fatty liver Crohn's disease with complication Abnormal colonoscopy Renal failure stage III Erosive gastritis Ulcerative pancolitis Early satiety Weight loss Diarrhea Anemia Arthritis HTN (hypertension) HLD (hyperlipidemia) Diabetes mellitus Crohn's disease Surgical History Surgical History H/O colectomy 05/04/20: B[facility] sigmoid colectomy History of removal of pigmented skin lesion History of esophagogastroduodenoscopy (EGD) Total knee replacement status History of ankle surgery right ankle Family History Family History Father , 72 Lung cancer Mother , 93 Diabetes mellitus Heart disease Social History Social History Social History: The patient is for ~ 2 months He is a full code. He has 3 children. He is retired. He quit smoking about 30 years ago. occasionally drinks alcohol. No drugs. Smoking packs per day: 1 Smoking cigarettes per day: 20.0 Years smoked: 30 Smoking pack-years: 30.00 Smoking status: Former smoker Tobacco type: cigarettes Second hand tobacco smoke exposure: No Smoking end date: 08/06/84 Additional smoking assessment comments: quit 30 years ago Alcohol intake: current Drinks per week: 7 Alcohol use details: States they drink about 1 to 2 alcoholic drinks a day Substance use: never Substance use type: does not use Lack of Transportation: No Lack of Food: Never True Current Housing: Decline to Answer Concerned About Future Housing: No Difficulty Paying Gas/Electric Bills: No Difficulty Paying for Meds: No Currently Unemployed: No Education: Bachelor's Degree Difficulty w/ Childcare or Family Care: No Living arrangements: alone Occupation/Education: retired Gender identity (if verbalized by the patient): Male Spiritual care concerns: No Anes - Eval Final PreProcedure Day of Procedure 07/23/24 12:37 Patient weight: overweight Heart: regular rate and rhythm Lungs: decreased breath sounds Airway: Mallampati scale class II Neurological: alert and oriented Last oral intake: >/= 8 hours ASA classification: III Emergent: no Anesthetic plan: proceed Anesthesia type and monitoring: general GIVS and standard monitoring Results Review: All pre-operative results and documents have been reviewed as part of the pre-operative evaluation. Informed Consent: The patient's anesthetic plan and its attendant risks and benefits were discussed with the patient/family/POA. Questions were solicited and answers provided to the satisfaction of the patient/family/POA.
[2024-07-23] MEDS: LACTATED RINGERS 1,000 ML 150 ML IV CONT (12:55)
[2024-07-23 14:02] VITALS: BP 95/55; PULSE 75; RESP 20; O2SAT 97
[2024-07-23 14:12] VITALS: BP 114/64; PULSE 68; RESP 22; O2SAT 97
[2024-07-23 14:22] VITALS: BP 116/60; PULSE 67; RESP 22; O2SAT 100
== END 2024-07-23 14:50 | disposition home or self-care (01) ==
PROVIDERS: PCP Nurse Practitioner; Referring Provider Internal Medicine Gastroenterology; Visit Provider Internal Medicine Gastroenterology
PROC: 0DJD8ZZ Inspection of Lower Intestinal Tract, Via Natural or Artificial Opening Endoscopic (ICD-10-PCS; CPT 45378; principal; 2024-07-23 13:00)
DX: K51.00 Ulcerative (chronic) pancolitis without complications (principal); Z90.49 Acquired absence of other specified parts of digestive tract; Z85.038 Personal history of other malignant neoplasm of large intestine; Z98.0 Intestinal bypass and anastomosis status; I12.9 Hypertensive chronic kidney disease with stage 1 through stage 4 chronic kidney disease, or unspecified chronic kidney disease; E11.22 Type 2 diabetes mellitus with diabetic chronic kidney disease; N18.30 Chronic kidney disease, stage 3 unspecified; Z87.891 Personal history of nicotine dependence; Z79.4 Long term (current) use of insulin
CPT/HCPCS: 45380; 82948; 88305; J2003; J2371; J2704; J7120

== ENCOUNTER 2025-06-23 02:10 | Day surgery (SDC) | payer MEDICARE, SELFPAY ==
[2025-06-14 13:56] VITALS: BMI 26.6
--- OUTSIDE RECORDS SUMMARY | 2025-06-23 03:21 | XMS_ITS | Clinical Summary ---
Author Organization [facility] Address [address] [place] [address] Care Team Providers Care Copier Field Service Technician Name Role Phone Adam Posada MD Primary Care Provider [phone] Leonard Greene MD, Shant Luo Unavailable [phone] Kevin Kraft MD Unavailable [phone] Allergies No known active allergies Medications aspirin 81 mg enteric coated tablet Active cholecalciferol (VITAMIN D-3) 2000 unit tablet Act ese glimepiride (AMARYL) 4 mg tablet Active lisinopriL (PRINIVIL,ZESTRIL ) 20 mg tablet Take 1 tablet (20 mg total) by mouth daily 02/11/20 25 Active OneTouch Verio test strips strip USE 1 STRIP IN METER TO TEST TWICE A DAY 02/13/20 25 Active TRESIBA 200 unit/mL (3 mL) pen for injection INJECT 40 UNITS (0.2 ML) SUBCUTANEOUSLY EVERY MORNING 02/08/20 25 Active mesalamine (LIALDA) 1.2 gram EC tablet Take 3 tablets (3.6 g total) by mouth daily 02/12/20 25 Active rosuvastatin (CRESTOR) 40 mg tablet Take 1 tablet (40 mg total) by mouth daily 02/12/20 25 Active traMADoL (ULTRAM) 50 mg tablet Take 1 tablet (50 mg total) by mouth every 6 (six) hours as needed for pain 8 tablet 03/24/20 25 Active Ultra-Fine Pen Needle 32 gauge x 1/4 needle 03/18/20 25 Active Unifine Pentips Plus 33 gauge x 5/32 needle USE DIRECTED DAILY 04/09/20 Active tadalafiL (CIALIS) 20 mg tablet PLEASE SEE ATTACHED FOR DETAILED DIRECTIONS 06/12/20 Active sodium zirconium cyclosilicate (Lokelma) 5 gram packetIndications :hyperkalemia Take 1 packet (5 g total) by mouth daily Take for 3 days 3 packet 06/19/20 Active Active Problems Problem Noted Date Diagnosed Date Hyperkalemia 06/19/2025 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 06/15/2025 Malignant melanoma of left u pper extremity including shoulder 03/20/2025 Pain of foot 09/11/2013 Arthralgia of ankle 04/30/2013 Encounters Date Type Department Care Team Description 06/22/2025 Telephone [facility] Medicine Oncology [address] [place] [phone] Braxton Santiago CMA 06/19/2025 8:30 AM AIR TRAFFIC SUPERVISOR Infusion [facility] - Infusion [address] [place] [address] Malignant melanoma of left upper extremity including shoulder (HCC) (Primary Dx); 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 (HCC); Hyperkalemia 06/19/2025 8:00 AM AIR TRAFFIC SUPERVISOR Lab [facility] - Lab Collection [address] [place] [address] 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 (HCC); Malignant melanoma of left upper extremity including shoulder (HCC); Hyperkalemia 06/19/2025 Telephone [facility] Medicine Oncology [address] [place] [address] [address] [place] [phone] Derrek Hill RN f/u high potassium 06/19/2025 Orders Only [facility] Medicine Oncology [address] [place] [address] 100 [address] DuenasFRANKO [phone] Kevin Kraft MD Hyperkalemia (Primary Dx); 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 (HCC); Malignant melanoma of left upper extremity including shoulder (HCC) 06/15/2025 11:00 AM AIR TRAFFIC SUPERVISOR Office Visit [facility] Medicine Oncology [address] [place] [address] 6 [place] [phone] Kevin Kraft MD 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 (HCC) (Primary Dx); Malignant melanoma of left upper extremity including shoulder (HCC) 06/15/2025 Orders Only [facility] Oncology [address] [phone] Kevin Kraft MD 06/09/2025 Telephone [facility] Medicine Oncology [address] [facility] [address] [place] [phone] Braxton Santiago CMA 06/08/2025 Telephone [facility] Medicine Oncology [address] [place] [phone] Braxton Santiago CMA 06/03/2025 9:21 AM CDT - 06/03/2025 11:59 PM CDT Hospital Encounter [facility] [address] [place] [address] Malignant melanoma of left upper extremity including shoulder (HCC) Discharge Disposition: Discharge to home or self care 05/25/2025 7:15 AM CDT - 05/25/2025 11:59 PM CDT Hospital Encounter [facility] MRI [address] [place] [address] Malignant melanoma of left upper extremity including shoulder (HCC) Discharge Disposition: Discharge to home or self care 05/19/2025 Telephone [facility] Radiology [address] [place] [address] Treva Hung RN 05/19/2025 Telephone [facility] Radiology [address] [place] [address] Treva Hung RN 05/19/2025 Telephone [facility] Radiology 1 [place] [address] Treva Hung RN 05/19/2025 Telephone [facility] Medicine Oncology [address] [place] [phone] Derrek Hill RN Call Back 05/19/2025 Telephone [facility] Medicine Oncology [address] [place] [phone] Derrek Hill RN Follow-up 05/19/2025 Telephone [facility] Radiology 1 [place] [address] Treva Hung RN 05/18/2025 9:42 AM CDT - 05/18/2025 11:59 PM CDT Hospital Encounter [facility] Medical Office Building [address] [address] Malignant melanoma of left upper extremity including shoulder (HCC) Discharge Disposition: Discharge to home or self care 05/18/2025 Telephone [facility] Medicine Oncology [address] [place] [address] 6 [place] [phone] Derrek Hill, BINDU follow up results/ biopsy 05/18/2025 Orders Only [facility] On[facility] [address] [place] [address] 6 [place] [phone] Kevin Kraft MD Malignant melanoma of left upper extremity including shoulder (HCC) (Primary Dx) 05/18/2025 Telephone [facility] Medicine Oncology [address] [place] [address] 6 [place] [phone] Braxton Santiago CMA 04/27/2025 11:00 AM CDT Lab [facility] - Lab Collection [address] [place] [address] Floor 6 [place] [address] Malignant melanoma of left upper extremity including shoulder (HCC) 04/27/2025 10:00 AM CDT Office Visit [facility] Oncology [address] [place] [address] 6 [place] [address] Kevin Kraft MD Malignant melanoma of left upper extremity including shoulder (HCC) (Primary Dx) 04/27/2025 Orders Only [facility] [address] [place] [address] 6 [place] [phone] Kevin Kraft MD Malignant melanoma of left upper extremity including shoulder (HCC) (Primary Dx) 04/08/2025 10:30 AM CDT Office Visit [facility] Medicine Surgery [address] [place] [address] Floor 5 [place] [address] Shant Valle Jr., MD Malignant melanoma of left upper extremity including shoulder (HCC) (Primary Dx) 04/03/2025 Telephone [facility] Medicine Surgery [facility] 8 [place] [address] Referral, Self Medical Question/Miscellane ous 03/30/2025 Results Follow-Up [facility] Medicine Surgery [address] [place] [address] 8 [place] [address] Shant Valle Jr., MD Surgical pathology 03/24/2025 7:30 AM CDT - 03/24/2025 10:10 AM CDT Surgery [facility] Operating Room [facility] [address] [place] [address] Shant Valle Jr., MD EXCISION CYST/LESION/MASS - LEFT SHOULDER 03/24/2025 7:30 AM CDT Anesthesia Event [facility] Operating [facility] [address] [place] [address] Hazel Cleveland MD 03/24/2025 5:42 AM CDT - 03/24/2025 11:16 AM CDT Hospital Encounter [facility] Operating Room [facility] [address] [place] [address] Shant Valle Jr., MD Malignant melanoma of left upper extremity including shoulder (HCC) Discharge Disposition: Discharge to home or self care 03/23/2025 2:44 PM CDT - 03/23/2025 11:59 PM CDT Hospital Encounter [facility] [address] [place] [address] Malignant melanoma of left upper extremity including shoulder (HCC) Discharge Disposition: Discharge to home or self care from Last 3 Months Surgical History Surgery Date Site/Laterality Comments MANDIBLE SURGERY KNEE SURGERY ANKLE SURGERY MANDIBLE SURGERY US GUIDED BIOPSY LYMPH NODE SUPERFICIAL LEFT 5 N/A Medical History Medical History Date Comments Hypertension Skin abnormalities Diabetes Family History Medical History Relation Name Comments Lung cancer Father Relation Name Status Comments Father Social History Tobacco Use Types Packs/Day Years Used Date Smoking Tobacco: Former Passive Smoke Exposure: Past Smokeless Tobacco: Never Alcohol Use Standard Drinks/Week Comments Yes 4 (1 standard drink = 0.6 oz pur e alcohol) AUDIT-C Answer Date Recorded Q1: How often do you have a drink containing alcohol? 4 or more times a week 03/24/2025 Q2: How many drinks containi ng alcohol do you have on a typical day when you are drinking? 1 or 2 Frequency of Binge Drinking Not on file 03/06 Personal Safety Answer Date Recorded Have you ever been in or are you currently in a harmful physical or emotional relationship or is someone making you feel afraid or unsafe? Denies 03/24/2025 Sex and Gender Information Value Date Recorded Sex Assigned at Not on file Legal Sex Male 2:28 AM AIR TRAFFIC SUPERVISOR Gender Identity Not on file Sexual Orientation Not on file Last Filed Vital Signs Vital Sign Reading Time Taken Comments Blood Pressure 123/70 06/19/2025 8:23 AM AIR TRAFFIC SUPERVISOR Pulse 83 06/19/2025 8:23 AM AIR TRAFFIC SUPERVISOR Temperature 36.8 C (98.2 F) 06/19/2025 8:23 AM AIR TRAFFIC SUPERVISOR Respiratory Rate 17 06/19/2025 8:23 AM AIR TRAFFIC SUPERVISOR Oxygen Saturation 98% 06/19/2025 8:23 AM AIR TRAFFIC SUPERVISOR Inhaled Oxygen Concentration - - Weight 92 kg (202 lb 13.2 oz) 06/19/2025 8:23 AM AIR TRAFFIC SUPERVISOR Height 187.5 cm (6' 1.82) 06/19/2025 8:23 AM CS T Body Mass Index 26.17 06/19/2025 8:23 AM AIR TRAFFIC SUPERVISOR Plan of Treatment Health Maintenance Due Date Last Done Comments Depression Screening 1945 DTaP/Tdap/Td Vaccine (1 - Tdap) 1954 Hepatitis B Screening 1961 Pneumococcal vaccine 65+ (1 of 2 - PCV) 1962 Zoster Vaccine (1 of 2) 1962 Well Visit 65+ 01/26/2008 Covid-19 Vaccine (4 - season) 2025 08/22/2021, 10/24/2020, 10/03/2020 Influenza Vaccine (#1) 2025 Fall Risk Assessment 03/24/2026 03/24/2025 Procedures Procedure Name Priority Date/Time Associated Diagnosis Comments POTASSIUM, WHOLE BLOOD STAT 10:46 AM AIR TRAFFIC SUPERVISOR Hyperkalemia 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 (HCC) Malignant melanoma of left upper extremity including shoulder (HCC) EGFR STAT 06/19/2025 7:54 AM AIR TRAFFIC SUPERVISOR 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 (HCC) Malignant melanoma of left upper extremity including shoulder (HCC) DIFFERENTIAL AUTO Routine 06/19/2025 7:5 4 AM AIR TRAFFIC SUPERVISOR 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 (HCC) Malignant melanoma of left upper extremity including shoulder (HCC) THYROID FUNCTION CASCADE Routine 7:54 AM AIR TRAFFIC SUPERVISOR 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 (HCC) Malignant melanoma of left upper extremity including shoulder (HCC) LACTATE DEHYDROGENASE Routine 06/19/2025 7:54 AM AIR TRAFFIC SUPERVISOR 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 (HCC) Malignant melanoma of left upper extremity including shoulder (HCC) CBC WITH AUTO DIFFERENTIAL Routine 06/19/2025 7:54 AM AIR TRAFFIC SUPERVISOR 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 (HCC) Malignant melanoma of left upper extremity including shoulder (HCC) COMPREHENSIVE METABOLIC PANEL STAT 06/19/2025 7:54 AM AIR TRAFFIC SUPERVISOR 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 (HCC) Malignant melanoma of left upper extremity including shoulder (HCC) US GUIDED BIOPSY LYMPH NODE SUPERFICIAL LEFT Schedule Routine, Read Routine (OP Routine) 06/03/2025 10:16 AM CDT Malignant melanoma of left upper extremity including shoulder (HCC) SURGICAL PATHOLOGY Routine 06/03/2025 9: 24 AM CDT Malignant melanoma of left upper extremity including shoulder (HCC) MRI BRAIN W WO CONTRAST Schedule Routine, Read Routine (OP Routine) 05/25/2025 8:47 AM CDT Malignant melanoma of left upper extremity including shoulder (HCC) PET/CT FDG SKULL TO THIGH Schedule Routine, Read Routine (OP Routine) 05/18/2025 11:29 AM CDT Malignant melanoma of left upper extremity including shoulder (HCC) POCT GLUCOSE DEVICE Routine 05/18/2025 9 :59 AM CDT SIGNATERA ONLY Routine 04/27/2025 10:57 AM CDT Malignant melanoma of left upper extremity including shoulder (HCC) SIGNATERA (GEMRAN COLLECTION) Routine 04/27/2025 10:57 AM CDT Malignant melanoma of left upper extremity including shoulder (HCC) POCT GLUCOSE DEVICE Routine 03/24/2025 10:08 AM CDT SURGICAL PATHOLOGY Routine 03/24/2025 8: 44 AM CDT Malignant melanoma of left upper extremity including shoulder (HCC) POCT GLUCOSE DEVICE Routine 03/24/2025 8 :18 AM CDT IA AN PROCEDURE PLACEHOLDER Routine 03/24/2025 7:49 AM CDT BIOPSY SENTINEL LYMPH NODE WITH LYMPHOSCINTIGRAPHY 03/24/2025 7:30 AM CDT Malignant melanoma of left upper extremity including shoulder (HCC) EXCISION CYST/LESION/MASS - SHOULDER 03/24/2025 7:30 AM CDT Malignant melanoma of left upper extremity including shoulder (HCC) POCT GLUCOSE DEVICE Routine 03/24/2025 6 :05 AM CDT NM LYMPHOSCINTIGRAPHY (SKIN CANCER) Schedule Routine, Read Routine (OP Routine) 03/23/2025 3:52 PM CDT Malignant melanoma of left upper extremity including shoulder (HCC) from Last 3 Months Results * (ABNORMAL) Potassium, whole blood (06/19/2025 10:46 AM AIR TRAFFIC SUPERVISOR) Potassium, bld 5.6(H) 3.3 - 4.9 mmol/L Blood 06/19/2025 10:4 6 AM AIR TRAFFIC SUPERVISOR 06/19/2025 10:58 AM AIR TRAFFIC SUPERVISOR Kevin Kraft MD LAB BLOOD ORDERABLES Final Res ult Performing Organization Address City/[facility] Co de Phone Number [facility] Department [place] [address] * (ABNORMAL) eGFR (06/19/2025 7:54 AM AIR TRAFFIC SUPERVISOR) eGFR 42(L) >=60 mL/min/1. 73 m2 Comment: Interpretive Data Reference Interval Normal >/= 90 mL/min/1.73m2 Mildly decreased* 60 - 89 mL/min/1.73m2 Mildly to moderately decreased 45 - 59 mL/min/1.73m2 Moderately to severely decreased 30 - 44 mL/min/1.73m2 Severely decreased 15 - 29 mL/min/1.73m2 Kidney Failure < 15 mL/min/1.73m2 *Relative to young adult level Estimated glomerular filtration rate is determined by the 2020 CKD-EPI equation recommended by the National Kidney Foundation (A Unifying Approach to GFR Estimation: Recommendations of the NKF-ASK Task Force on Reassessing the Inclusion of Race in Diagnosing Kidney Disease, JASN 2020). The CKD-EPI equation should not be used for patients with unstable renal function and has not been validated in children and those over 70. Current interpretive data was last reviewed 2021. Blood 06/19/2025 7:54 AM AIR TRAFFIC SUPERVISOR 06/19/2025 8:03 AM AIR TRAFFIC SUPERVISOR Kevin Kraft MD LAB BLOOD ORDERABLES Final Res ult Performing Organization Address City/[facility]/ZIP Co de Phone Number [facility] Department [place] [address] * Differential, auto (06/19/2025 7:54 AM AIR TRAFFIC SUPERVISOR) Neutrophil abs 5.08 1.50 - 6.50 K/cumm Comment:Testing performed by : [facility], [address] [place] [phone] Lymphocyte abs 2.09 0.80 - 3.30 K/cumm [facility] Comment:Testing performed by : [facility], [facility] [place] [address] Monocyte abs 0.73 0.20 - 0.80 K/cumm [facility] Comment:Testing performed by : [facility], [address] [place] [phone] Eosinophil abs 0.31 0.00 - 0.50 K/cumm [facility] Comment:Testing performed by : [facility], [address] [place] [phone] Basophil abs 0.04 0.00 - 0.10 K/cumm [facility] Comment:Testing performed by : [facility], [address] [place] [phone] Neutrophil pct 61.6 % [facility] Comment: Interpretive Data Percent cell count reference ranges are not reported, since discordance with absolute values may lead to misinterpretation of CBC data. Current Interpretive Data was last revised on 2017. Testing performed by: [facility], [address] [place] [phone] Lymphocyte pct 25.3 % [facility] Comment: Interpretive Data Percent cell count reference ranges are not reported, since discordance with absolute values may lead to misinterpretation of CBC data. Current Interpretive Data was last revised on 2017. Testing performed by: [facility], [address] [place] [phone] Monocyte pct 8.9 % [facility] Comment: Interpretive Data Percent cell count reference ranges are not reported, since discordance with absolute values may lead to misinterpretation of CBC data. Current Interpretive Data was last revised on 2017. Testing performed by: [facility], [address] [place] [phone] Eosinophil pct 3.7 % [facility] Comment: Interpretive Data Percent cell count reference ranges are not reported, since discordance with absolute values may lead to misinterpretation of CBC data. Current Interpretive Data was last revised on 2017. Testing performed by: [facility], [address] [place] [phone] Basophil pct 0.5 % [facility] Comment: Interpretive Data Percent cell count reference ranges are not reported, since discordance with absolute values may lead to misinterpretation of CBC data. Current Interpretive Data was last revised on 2017. Testing performed by: [facility], [address] [place] [phone] Blood 06/19/2025 7:54 AM AIR TRAFFIC SUPERVISOR 06/19/2025 7:59 AM AIR TRAFFIC SUPERVISOR Kevin Kraft MD LAB BLOOD ORDERABLES Final Res ult Performing Organization Address [facility] Co de Phone Number [facility] [place] [address] * Thyroid Function [place] (06/19/2025 7:54 AM AIR TRAFFIC SUPERVISOR) Pathologist [facility] TSH 1.99 0.30 - 4.20 mcIUnit/mL Blood 06/19/2025 7:54 AM AIR TRAFFIC SUPERVISOR 06/19/2025 8:03 AM AIR TRAFFIC SUPERVISOR Kevin Kraft MD LAB BLOOD ORDERABLES Final Res ult Performing Organization Address City/[facility] de Phone Number [facility] [place] [address] * (ABNORMAL) CBC with auto differential (06/19/2025 7:54 AM AIR TRAFFIC SUPERVISOR) Pathologist [facility] WBC 8.25 3.80 - 9.90 K/cumm Comment:Testing performed by : [facility], [address] [place] [phone] Hgb 12.8(L) 13.0 - 17.5 g/dL [facility] Comment:Testing performed by : [facility], [address] [place] [phone] Hct 37.6(L) 38.9 - 50.3 % [facility] Comment:Testing performed by : [facility], [address] [place] [phone] Plt 221 150 - 400 K/cumm [facility] Comment:Testing performed by : [facility], [address] [place] [address] MPV 9.4 6.8 - 10.[address] [facility] Comment:Testing performed by : [facility], [address] [place] [address] RBC 3.90(L) 4.30 - 5.80 M/cumm [facility] Comment:Testing performed by : [facility], [address] [place] [address] MCV 96.3 81.3 - 96.[address] [facility] Comment:Testing performed by : [facility], [address] [place] [address] MCH 32.7 27.1 - 33.[address] [facility] Comment:Testing performed by : [facility], [address] [place] [address] MCHC 34.0 32.3 - 35.7 g/dL [facility] Comment:Testing performed by : [facility], [address] [place] [address] RDW CV 13.0 11.1 - 14.9 % [facility] Comment:Testing performed by : [facility], [address] [place] [address] NRBC abs 0.00 0.00 - 0.01 K/cumm [facility] Comment:Testing performed by : [facility], [address] [place] [address] Blood 06/19/2025 7:54 AM AIR TRAFFIC SUPERVISOR 06/19/2025 7:59 AM AIR TRAFFIC SUPERVISOR us Kevin Kraft MD LAB BLOOD ORDERABLES Final Res ult [facility] [place] [address] * Lactate dehydrogenase (LD) (06/19/2025 7:54 AM AIR TRAFFIC SUPERVISOR) Lactate dehydrogenase (LDH) 183 100 - 250 Units/L Blood 06/19/2025 7:54 AM AIR TRAFFIC SUPERVISOR 06/19/2025 8:03 AM AIR TRAFFIC SUPERVISOR us Kevin Kraft MD LAB BLOOD ORDERABLES Final Res ult [facility] [place] [address] * (ABNORMAL) Comprehensive metabolic panel (06/19/2025 7:54 AM AIR TRAFFIC SUPERVISOR) Pathologist [facility] Sodium 143 135 - 145 mmol/L Potassium, pl 5.8(H) 3.3 - 4.9 mmol/L [facility] Chloride 107 97 - 110 mmol/L [facility] CO2 26 22 - 32 mmol/L [facility] Anion gap 10 2 - 15 mmol/L [facility] BUN 27(H) 6 - 25 mg/dL [facility] Creatinine 1.61(H) 0.80 - 1.30 mg/dL [facility] Glucose 158 70 - 199 mg/dL [facility] Comment: Interpretive Data Fasting glucose >/= 126 mg/dl is diagnostic for diabetes. Fasting is defined as no caloric intake for at least 8 hours. Fasting glucose between 100 mg/dl to 125 mg/dl is diagnostic of prediabetes. In a patient with classic symptoms of hyperglycemia or hyperglycemic crisis, a random glucose >/= 200 mg/dl is diagnostic for diabetes. In the absence of unequivocal hyperglycemia, results should be confirmed by repeat testing. The classification and Diagnosis of Diabetes Diabetes Care 2021; 46: S19-S40. Current interpretive data was last revised 2022. Calcium 9.8 8.5 - 10.3 mg/dL [facility] Bilirubin, total 0.5 0.1 - 1.2 mg/dL [facility] Protein, pl 7.5 6.5 - 8.5 g/dL [facility] Albumin 4.2 3.5 - 5.0 g/dL [facility] Alk phos 117 40 - 130 Units/L [facility] ALT 90(H) 7 - 55 Units/L [facility] AST 52(H) 10 - 50 Units/L [facility] Blood 06/19/2025 7:54 AM AIR TRAFFIC SUPERVISOR 06/19/2025 8:03 AM AIR TRAFFIC SUPERVISOR Kevin Kraft MD LAB BLOOD ORDERABLES Final Res ult [facility] [place] [address] * US Guided Biopsy Lymph Node Superficial Left (06/03/2025 10:16 AM CDT) Anatomical Region Laterality Modality Entire body N/A Ultrasound 06/03/2025 10:2 1 AM CDT Impressions 06/03/2025 10:28 AM CDT 1. Successful ultrasound-guided core needle biopsy of left axillary lymph node. 2. Please see separate Surgical Pathology results for final interpretation. The radiology attending physician has personally reviewed this study, and had reviewed and/or edited this written report and agrees with it. Electronically signed by: JOSE DE JESUS Ramírez Narrative 06/03/2025 10:28 AM CDT EXAMINATION: ULTRASOUND-GUIDED CORE BIOPSY HISTORY: 80 y/o M with history of left shoulder melanoma s/p resection and PET/CT finding of FDG avid Left axillary lymphadenopathy, presenting today for biopsy. COMPARISON: PET/CT 05/18/2025 FINDINGS: Ultrasound of the left axilla showed a1.7 x 1.7 x 0.9 cm hypoechoic left axillary lymph node that corresponds to the FDG avid left axilla lymph node. TECHNIQUE: The procedure for ultrasound-guided core biopsy was explained to and discussed with the patient. Risks were explained to include, but not be limited to, hemorrhage, infection, injury to adjacent organs, non-diagnostic specimen and adverse reaction to medications administered. The patient voiced understanding and wished to proceed and signed the consent form. PROCEDURAL SEDATION: Local anesthesia only CORE BIOPSY: The lymph node was located in the left axilla and measured 1.7 cm x 1.7 cm x 0.9 cm. An appropriate site was localized for core biopsy. The patient's overlying skin was prepped and draped in the usual sterile fashion. Local anesthesia was achieved via subcutaneous and deep administration with 6 mL of Lidocaine 1%. Under realtime ultrasound guidance, 6 passes were made with an 18 gauge Corvocet core biopsy needle, 1.1 cm throw, with the use of a 17 gauge introducer needle. The core specimens were placed in formalin and submitted to the agricultural engineering teacher service for delivery to Surgical Pathology. No tract embolization was performed. The patient's skin was cleaned and dressed. The patient tolerated the entire procedure well without immediate complications. JOSE DE JESUS Ramírez, was present from the beginning to the end of the procedure. JOSE DE JESUS Ramírez performed the biopsy. Dr. Julius Hardwick was present and participated in the procedure. Dr. Julius Hardwick (residential sales consultant) personally participated in sonographic imaging of this patient. Procedure Note Cyndi Cade PA - 06/03/2025 EXAMINATION: ULTRASOUND-GUIDED CORE BIOPSY HISTORY: 80 y/o M with history of left shoulder melanoma s/p resection and PET/CT finding of FDG avid Left axillary lymphadenopathy, presenting today for biopsy. COMPARISON: PET/CT 05/18/2025 FINDINGS: Ultrasound of the left axilla showed a1.7 x 1.7 x 0.9 cm hypoechoic left axillary lymph node that corresponds to the FDG avid left axilla lymph node. TECHNIQUE: The procedure for ultrasound-guided core biopsy was explained to and discussed with the patient. Risks were explained to include, but not be limited to, hemorrhage, infection, injury to adjacent organs, non-diagnostic specimen and adverse reaction to medications administered. The patient voiced understanding and wished to proceed and signed the consent form. PROCEDURAL SEDATION: Local anesthesia only CORE BIOPSY: The lymph node was located in the left axilla and measured 1.7 cm x 1.7 cm x 0.9 cm. An appropriate site was localized for core biopsy. The patient's overlying skin was prepped and draped in the usual sterile fashion. Local anesthesia was achieved via subcutaneous and deep administration with 6 mL of Lidocaine 1%. Under realtime ultrasound guidance, 6 passes were made with an 18 gauge Corvocet core biopsy needle, 1.1 cm throw, with the use of a 17 gauge introducer needle. The core specimens were placed in formalin and submitted to the agricultural engineering teacher service for delivery to Surgical Pathology. No tract embolization was performed. The patient's skin was cleaned and dressed. The patient tolerated the entire procedure well without immediate complications. JOSE DE JESUS Ramírez, was present from the beginning to the end of the procedure. JOSE DE JESUS Ramírez performed the biopsy. Dr. Julius Hardwick was present and participated in the procedure. Dr. Julius Hardwick (residential sales consultant) personally participated in sonographic imaging of this patient. IMPRESSION: 1. Successful ultrasound-guided core needle biopsy of left axillary lymph node. 2. Please see separate Surgical Pathology results for final interpretation. The radiology attending physician has personally reviewed this study, and had reviewed and/or edited this written report and agrees with it. Electronically signed by: JOSE DE JESUS Ramírez Kevin Kraft MD [facility] PROCEDURES Final Result * Surgical pathology (06/03/2025 9:24 AM CDT) Tissue (Lymph node, needle biopsy) 06/03/2025 9:24 AM CDT Narrative PATHOLOGY [facility] - 06/04/2025 10:38 AM CDT EPIC results best viewed via link to PDF [facility] [place] [address] Note to Patients: This report may contain a detailed description of human tissue sent by a health care provider to the laboratory for pathologic evaluation. The content of this report is essential for diagnosis and may provide important critical findings. This information may be unfamiliar to patients to review without a medical professional present. It is advised that the patient review this report in the presence of a health care provider who can answer questions and explain the details. SURGICAL PATHOLOGY REPORT FINAL Patient Name: ANATOLIY FRIEDMAN Gender: M : 1945 (Age: 80) Address: [address] [place] [id number] Hospital #: [id number] Taken:06/03/2025 Received:06/03/2025 Reported: 06/04/2025 Patient Type: [facility] Ancillary Service: UNKNOWN Location: Physician(s): ALEX Ramírez MD Tibor Kopjas, M.D. Diagnosis: Lymph node, left axilla, biopsy - Metastatic melanoma [facility]06/04/2025 09:01 By this signature, I attest that the above diagnosis is based upon my personal examination of the slides(and/or other material indicated in the diagnosis). Shant Mota M.D. Report Electronically Reviewed and Signed Out By Shant Mota M.D. 06/04/2025 10:38:39 Marcia Moore M.D. 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 Operative procedure: Left axilla lymph node biopsy. Specimen(s) Received: A: Lt axilla lymph node biopsy Gross Description: Received in formalin, labeled with the patient s identifiers and left axilla lymph node biopsy and consists of eight red hemorrhagic core(s) of soft tissue measuring 0.2-1.5 cm in length x 0.1 cm in diameter. Labeled A1 to A2. Jar 0. [facility]06/03/2025 11:57 PA(s): Princess Morrissey By this signature, I attest that the above diagnosis is based upon my personal examination of the slides(and/or other material). Addenda/Procedures The performance characteristics of some immunohistochemical stains, fluorescence in-situ hybridization tests and immunophenotyping by flow cytometry cited in this report (if any) were determined by the Surgical Pathology and Flow Cytometry Departments at [facility] as part of an ongoing quality assurance supervisor chassis program and in compliance with federally mandated regulations drawn from the Clinical Laboratory Improvement Act of 1988 (CLIA '88). Some of these tests rely on the use of analyte specific reagents and are subject to specific labeling requirements by the US Food and Drug Administration. Such diagnostic tests may only be performed in a facility that is certified by the Department of Health and Human Services as a high complexity laboratory under CLIA '88. The FDA has determined that such clearance or approval is not necessary. This test is used for clinical purposes. It should not be regarded as investigational or for research. Nevertheless, federal rules concerning the medical use of analyte specific reagents require that the following disclaimer be attached to the report: This test was developed and its performance characteristics determined by the Surgical Pathology and Flow Cytometry Departments of [facility]. It has not been cleared or approved by the U. S. Food and Drug Administration. IMAGES AND SCANNED DOCUMENTS, IF INCLUDED, ONLY VIEWABLE IN PDF VERSION OF REPORT Kevin Kraft MD LAB PATHOLOGY ORDERABLES Final Result PATHOLOGY [facility] 3rd Floor [place], [place] [phone] * MRI Brain W WO Contrast (05/25/2025 8:47 AM CDT) Anatomical Region Laterality Modality Head and Neck N/A Magnetic Resonan ce 05/25/2025 4:59 PM CDT Narrative 05/25/2025 5:07 PM CDT EXAM DESCRIPTION: MRI BRAIN W WO CONTRAST REASON FOR STUDY: restaging Newly diagnosed melanoma located on the left shoulder with questionable micrometastasis to 08/06 left axillary sentinel lymph node. Checking for mets, no symptoms TECHNIQUE: Multiplanar imaging includes noncontrast T1, T2, FLAIR, diffusion with ADC map and post contrast T1 sequences. Additional sequence(s) sensitive to blood products. Images stored on PACS. CONTRAST TYPE/DOSE: 20mL of GADOTERATE MEGLUMINE 0.5 MMOL/ML INTRAVENOUS SOLUTION (SO) injected via intravenous COMPARISON: No comparison. FINDINGS: CEREBRUM: There is encephalomalacia throughout the bilateral anterior medial frontal lobes with cortical and white matter loss and significant associated hemosiderin deposition along the residual cortical margins and at the margins of these lesions. The distribution and overall appearance suggest severe head injury. Correlation with past history is recommended. Prominent old lacunar infarct of the right putamen, left head of caudate nucleus and subcortical and periventricular white matter lacunar infarcts. Please correlate with other clinical factors. There is no acute infarct or mass. Magana-white differentiation otherwise appears normal. There is enlargement of the lateral ventricles diffusely and 3rd ventricle, likely related to volume loss. WHITE MATTER: [place] abnormal T2 hyperintensity throughout periventricular white matter with predominant involvement of the anterior frontal regions. Findings probably represent a combination of microvascular change as well as gliotic changes associated with the extensive white matter volume loss. POSTERIOR FOSSA: The brainstem and cerebellum appear unremarkable. DIFFUSION IMAGING: No recent infarction. EXTRAAXIAL SPACES: No hemorrhage. No mass or abnormal enhancement. BRAIN VOLUME: Cerebral volume loss diffusely, likely representing a combination of age-related volume loss and previous injuries. PITUITARY: Unremarkable. VASCULATURE: No flow disturbance identified. ORBITS: No masses. Globes normal. PARANASAL SINUSES AND MASTOIDS: Well-aerated with no fluid levels. No mucosa thickening. OTHER: No other significant finding. IMPRESSION: 1. No acute infarction. No enhancing lesion to indicate metastatic disease. 2. Extensive encephalomalacia of the bilateral anterior frontal lobes with hemosiderin deposition and gliotic changes. Findings suggest severe head injury. Please correlate with past history. 3. 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 Please correlate with other clinical factors. 4. Diffuse cerebral volume loss, likely representing a combination of age-related volume loss and previous injuries. THIS IS AN ELECTRONICALLY VERIFIED FINAL REPORT 05/25/2025 5:07 PM - Electronically signed by Marko Cruz M.D. T: Report ID: [id number] Reading Location: [id number] Procedure Note Teresa Cruz MD - 05/25/2025 EXAM DESCRIPTION: MRI BRAIN W WO CONTRAST REASON FOR STUDY: restaging Newly diagnosed melanoma located on the left shoulder with questionable micrometastasis to 08/06 left axillary sentinel lymph node. Checking formets, no symptoms TECHNIQUE: Multiplanar imaging includes noncontrast T1, T2, FLAIR,diffusion with ADC map and post contrast T1 sequences. Additional sequence(s)sensitive to blood products. Images stored on PACS. CONTRAST TYPE/DOSE: 20mL of GADOTERATE MEGLUMINE 0.5 MMOL/ML INTRAVENOUS SOLUTION (SO) injected via intravenous COMPARISON: No comparison. FINDINGS: CEREBRUM: There is encephalomalacia throughout the bilateral anterior medial frontal lobes with cortical and white matter loss and significant associated hemosiderin deposition along the residual cortical margins and at the margins of these lesions. The distribution and overall appearance suggest severe head injury. Correlation with past history is recommended. Prominent old lacunar infarct of the right putamen, lefthead of caudate nucleus and subcortical and periventricular white matter lacunar infarcts. Please correlate with other clinical factors. There is noacute infarct or mass. Magana-white differentiation otherwise appears normal.There is enlargement of the lateral ventricles diffusely and 3rd ventricle,likely related to volume loss. WHITE MATTER: Engadine abnormal T2 hyperintensity throughout periventricular white matter with predominant involvement of the anterior frontal regions. Findings probably represent a combination ofmicrovascular change as well as gliotic changes associated with the extensive whitematter volume loss. POSTERIOR FOSSA: The brainstem and cerebellum appear unremarkable. DIFFUSION IMAGING: No recent infarction. EXTRAAXIAL SPACES: No hemorrhage. No mass or abnormal enhancement. BRAIN VOLUME: Cerebral volume loss diffusely, likely representing a combination of age-related volume loss and previous injuries. PITUITARY: Unremarkable. VASCULATURE: No flow disturbance identified. ORBITS: No masses. Globes normal. PARANASAL SINUSES AND MASTOIDS: Well-aerated with no fluid levels. Nomucosa thickening. OTHER: No other significant finding. IMPRESSION: 1. No acute infarction. No enhancing lesion to indicate metastaticdisease. 2. Extensive encephalomalacia of the bilateral anterior frontal lobeswith hemosiderin deposition and gliotic changes. Findings suggest severe head injury. Please correlate with past history. 3. Multiple old lacunar infarcts of the basal ganglia andperiventricular white matter. Please correlate with other clinical factors. 4. Diffuse cerebral volume loss, likely representing a combination of age-related volume loss and previous injuries. THIS IS AN ELECTRONICALLY VERIFIED FINAL REPORT 05/25/2025 5:07 PM - Electronically signed by Marko Cruz M.D. T: Report ID: [id number] Reading Location: [id number] Kevin Kraft MD IM MRI PROCEDURES Final Resul t * PET/CT FDG Skull to Thigh (05/18/2025 11:29 AM CDT) Anatomical Region Laterality Modality N/A Positron Emissio n Tomography (PET) 05/18/2025 12:2 0 PM CDT Narrative 05/18/2025 12:47 PM CDT EXAM DESCRIPTION: PET/CT FDG SKULL TO THIGH REASON FOR STUDY: Malignant melanoma of the left upper extremity including shoulder, PET-CT for staging and initial treatment strategy. Additional history includes multifocal squamous cell carcinoma of the skin including left cheek, right cheek, left forehead and right forearm. RADIOPHARMACEUTICAL: 11.1 mCi F-18 Fluorodeoxyglucose (FDG) via a right hand IV site. TECHNIQUE: The patient's fasting blood glucose level, measured by glucometer before injection of FDG, was 76 mg/dL. After intravenous administration of FDG, noncontrast CT images were obtained for attenuation correction and for fusion with emission PET images to allow for anatomical localization of PET findings. Emission PET images were then obtained. The area imaged spanned the region from the skull base to the thighs. The uptake time was approximately 60 minutes. SUV max was normalized to body weight. COMPARISON: No prior PET-CT. Limited correlation with since a lymph node nuclear scintigraphy 03/23/2025. FINDINGS: For reference, a region of interest of the ascending thoracic aorta has a maximal SUV of 2.4 . For reference, a region of interest of the right hepatic lobe of the liver has a maximal SUV of 3.4. Head: Normal FDG uptake is seen in the included portion of the brain. Neck: Physiologic uptake is present in the lymphoid structures and salivary glands. No hypermetabolic lymphadenopathy is identified. Chest: Mild emphysema is noted. No hypermetabolic or suspicious pulmonary nodule or mass. There is mild peripheral reticular opacity in the bases which may be due to mild fibrosis. There are surgical clips in the left axilla. In addition, there is a intensely FDG avid left level I axillary lymph node, this is 1.5 x 1 cm having a maximal SUV 31.4. No hypermetabolic mediastinal or hilar lymphadenopathy. There is activity of the right sternoclavicular joint which appears arthritic. Mild activity along the distal esophagus. Abdomen and Pelvis: Liver and spleen demonstrate normal activity without focal abnormal FDG uptake. Gallbladder unremarkable. Pancreas is unremarkable. There is mild activity of the adrenal glands, the right adrenal gland has a maximal SUV 3.9 and left adrenal gland maximal SUV 3.6, this is likely physiologic. There are metabolically active upper abdominal lymph nodes, peripancreatic 2.1 x 1.6 cm maximal SUV 3.9 and portacaval, 2.7 x 0.9 cm maximal SUV 3.7. No other metabolically active abdominal or pelvic lymph nodes. Normal excretion of FDG from the right kidney. Left renal cysts are noted, the largest measure 5.6 cm. Normal excretion of FDG from the left kidney with expected accumulation of radiotracer within the urinary bladder. The prostate is mildly enlarged. There is some heterogeneous bowel activity especially prominent of the ascending colon although this is nonfocal. This is a suture line of the rectosigmoid colon. Bones: Bone windows demonstrate no hypermetabolic acute or aggressive osseous lesions. IMPRESSION: 1. Hypermetabolic left level I axillary lymph node characteristic of metastatic disease. 2. Metabolically active upper abdominal lymph nodes are nonspecific, these could be metastatic or reactive. Continued attention on follow-up imaging recommended. 3. No other evidence of FDG avid malignancy. THIS IS AN ELECTRONICALLY VERIFIED FINAL REPORT 05/18/2025 12:47 PM - Electronically signed by Liam Huddleston M.D. CH: RAJ Report ID: [id number] Reading Location: [place] [address] Procedure Note Liam Huddleston MD - 05/18/2025 EXAM DESCRIPTION: PET/CT FDG SKULL TO THIGH REASON FOR STUDY: Malignant melanoma of the left upper extremity including shoulder, PET-CT for staging and initial treatment strategy. Additional history includes multifocal squamous cell carcinoma of the skin includingleft cheek, right cheek, left forehead and right forearm. RADIOPHARMACEUTICAL: 11.1 mCi F-18 Fluorodeoxyglucose (FDG) via a righthand IV site. TECHNIQUE: The patient's fasting blood glucose level, measured byglucometer before injection of FDG, was 76 mg/dL. After intravenous administrationof FDG, noncontrast CT images were obtained for attenuation correction andfor fusion with emission PET images to allow for anatomical localization ofPET findings. Emission PET images were then obtained. The area imaged spannedthe region from the skull base to the thighs. The uptake time wasapproximately 60 minutes. SUV max was normalized to body weight. COMPARISON: No prior PET-CT. Limited correlation with since a lymph node nuclear scintigraphy 03/23/2025. FINDINGS: For reference, a region of interest of the ascending thoracicaorta has a maximal SUV of 2.4 . For reference, a region of interest of theright hepatic lobe of the liver has a maximal SUV of 3.4. Head: Normal FDG uptake is seen in the included portion of the brain. Neck: Physiologic uptake is present in the lymphoid structures andsalivary glands. No hypermetabolic lymphadenopathy is identified. Chest: Mild emphysema is noted. No hypermetabolic or suspiciouspulmonary nodule or mass. There is mild peripheral reticular opacity in the baseswhich may be due to mild fibrosis. There are surgical clips in the left axilla.In addition, there is a intensely FDG avid left level I axillary lymph node,this is 1.5 x 1 cm having a maximal SUV 31.4. No hypermetabolic mediastinal or hilar lymphadenopathy. There is activity of the right sternoclavicularjoint which appears arthritic. Mild activity along the distal esophagus. Abdomen and Pelvis: Liver and spleen demonstrate normal activity withoutfocal abnormal FDG uptake. Gallbladder unremarkable. Pancreas is unremarkable. There is mild activity of the adrenal glands, the right adrenal gland hasa maximal SUV 3.9 and left adrenal gland maximal SUV 3.6, this is likely physiologic. There are metabolically active upper abdominal lymph nodes, peripancreatic 2.1 x 1.6 cm maximal SUV 3.9 and portacaval, 2.7 x 0.9 cm maximal SUV 3.7. No other metabolically active abdominal or pelvic lymph nodes. Normal excretion of FDG from the right kidney. Left renal cystsare noted, the largest measure 5.6 cm. Normal excretion of FDG from the left kidney with expected accumulation of radiotracer within the urinarybladder. The prostate is mildly enlarged. There is some heterogeneous bowelactivity especially prominent of the ascending colon although this is nonfocal.This is a suture line of the rectosigmoid colon. Bones: Bone windows demonstrate no hypermetabolic acute or aggressiveosseous lesions. IMPRESSION: 1. Hypermetabolic left level I axillary lymph node characteristic of metastatic disease. 2. Metabolically active upper abdominal lymph nodes are nonspecific,these could be metastatic or reactive. Continued attention on follow-up imaging recommended. 3. No other evidence of FDG avid malignancy. THIS IS AN ELECTRONICALLY VERIFIED FINAL REPORT 05/18/2025 12:47 PM - Electronically signed by Liam Huddleston M.D. CH: RAJ Report ID: [id number] Reading Location: [id number] Kevin Kraft MD IMG PET PROCEDURES Final Resul t * POCT glucose (05/18/2025 9:59 AM CDT) Pathologist [facility] Glucose, POC 76 70 - 199 mg/dL Comment:Testing performed by : [facility], [address] [place] [address]., [id number] Blood 05/18/2025 9:59 AM CDT 05/18/2025 9:59 AM CDT Self Referral LAB POCT ORDERABLES - DEVICE Fin al Result [facility] [address] [facility] Department [place] [address] * Signatera Only German Managed Subsequent Draws (04/27/2025 10:57 AM CDT) [facility] SIGNATERA TEST RESULT NEGATIVE 04/2025 3:18 PM [employer] [facility] SIGNATERA MTM READOUT 0 MTM/ml 04/2025 3:18 PM [employer] [facility] Comment: Please see the attached PDF for more information. Limitations Signatera is a personalized, tumor-informed test for the longitudinal detection of circulating tumor DNA (ctDNA). Interval testing is recommended for all patients. Studies have demonstrated that when ctDNA is detected (Signatera Positive) following surgery or definitive treatment, the risk for disease relapse is high without further treatment. Conversely, when ctDNA is not detected, the patient may be considered at lower risk for relapse. For those with multiple timepoints, upward trending ctDNA levels are suggestive of increasing tumor burden (1,2). For a single time point in isolation, the absolute MTM/mL value has no known clinical significance and should not be compared across patients. Test results should be interpreted in context of other clinicopathological features. ctDNA detection sensitivity may be limited due to blood collection within two weeks of surgery and while the patient is on therapy. Signatera is a quantitative test and reports in units of mean tumor molecules per ml (MTM/mL), which is comprised of three measured components (plasma volume, cell free DNA (cfDNA) concentration, and Variant Allele Frequency (VAF)). The MTM/mL number will be qualified if any measured component falls outside the analytical measurement range for that component. When Signatera is designed from whole genome sequencing of the tumor, the analytical sensitivity is 95% at the limit of detection (0.05 MTM/mL). Results obtained are specific to the assessed time point. A negative test result does not definitively indicate the absence of cancer. This test is not designed to detect or report germline variation, nor does it infer hereditary cancer risk for the patient. Each Signatera assay is designed to a single tumor for a given patient. This test is designed to detect ctDNA from the assayed tumor only; new primary tumors will not be detected. There is a low risk that a new primary may share a variant that could interfere with the Signatera test. Testing cannot be performed in patients with a history of bone marrow transplant. 1 Aly SV, Moreno FORDC, Tiera SOLORIO, et al. Personalized circulating tumor DNA analysis as a predictive biomarker in solid tumor patients treated with pembrolizumab. Nature Cancer. 2020;1(9):873-881. 2 Patrick TV, Teresita N, et al., Circulating Tumor DNA in Stage III Colorectal Cancer, beyond Minimal Residual Disease Detection, toward Assessment of Adjuvant Therapy Efficacy and Clinical Behavior of Recurrences. Clin Cancer Res. 2020; 28(3):507-517. Methodology FFPE samples are reviewed by a pathologist to assess tumor content and percent tumor nuclei. Tumor DNA is extracted using Erie Bio-tiffany Mag-Bind FFPE DNA/RNA kit. Whole genomic DNA is isolated from peripheral blood using QIAamp DNA Blood MiniKit to provide DNA for germline sequencing. Circulating tumor DNA (ctDNA) is extracted from plasma derived from whole blood samples collected in cell-free DNA blood tubes (NOW[employer] Innovations) using the QIAsymphony automated or manual extraction method (Qiagen). Whole genome sequencing is performed on tumor and peripheral blood DNA using the Ujogo whole genome sequencing assay. Using a proprietary algorithm, putative, clonal variants present in the tumor but absent in the germline DNA are identified to design the customized multiplex PCR assay. The customized PCR assays are run to detect presence or absence of these variants within circulating plasma. Sample level calls are determined using a residential sales executive that integrates confidence scores across all targets, as well as off-target errors. Disclaimer The extraction, library preparation, and sequencing for this test were performed by [employer] [address], [facility] [address], [place] [address] (CLIA ID [id number]). The data analysis and reporting for this test were performed by [facility] [address], [place] [address] (CLIA ID [id number]). This test was developed and its performance characteristics determined by [facility]. The test has not been cleared or approved by the U.S. Food and Drug Administration (FDA). CAP accredited, ISO 49845 certified, and CLIA certified. Pathology services and whole genome sequencing for this test were performed by [facility]. (CLIA ID [id number]) [address] [facility] A [address] 2023 [employer]. All Rights Reserved. Blood specimen (specimen) Venous blood specimen / Unknown 04/27/2025 10:57 AM CDT 05/07/2025 2:00 AM CDT Kevin Kraft MD LAB GENETIC TESTING Final Resu lt [facility] [address] [place] [address], [facility] * (ABNORMAL) SIGNATERA ONLY (04/27/2025 10:57 AM CDT) SIGNATERA TEST RESULT POSITIVE (A) 06/14/2025 10:30 AM AIR TRAFFIC SUPERVISOR [facility] SIGNATERA MTM READOUT 0.02(A) MTM/ml 04/2025 10:30 AM AIR TRAFFIC SUPERVISOR [facility] Comment: The VAF or cfDNA quantification that is used in the MTM/mL calculation is below the analytical measurement range; therefore, the precision of the absolute MTM/mL may be impacted. The Signatera Positive result is unaffected. Refer to peer-reviewed literature for the MTM/mL calculation methodology and how ctDNA dynamics can reflect changes in disease burden (1,2). Please see the attached PDF for more information. Limitations Signatera is a personalized, tumor-informed test for the longitudinal detection of circulating tumor DNA (ctDNA). Interval testing is recommended for all patients. Studies have demonstrated that when ctDNA is detected (Signatera Positive) following surgery or definitive treatment, the risk for disease relapse is high without further treatment. Conversely, when ctDNA is not detected, the patient may be considered at lower risk for relapse. For those with multiple timepoints, upward trending ctDNA levels are suggestive of increasing tumor burden (1,2). For a single time point in isolation, the absolute MTM/mL value has no known clinical significance and should not be compared across patients. Test results should be interpreted in context of other clinicopathological features. ctDNA detection sensitivity may be limited due to blood collection within two weeks of surgery and while the patient is on therapy. Signatera is a quantitative test and reports in units of mean tumor molecules per ml (MTM/mL), which is comprised of three measured components (plasma volume, cell free DNA (cfDNA) concentration, and Variant Allele Frequency (VAF)). The MTM/mL number will be qualified if any measured component falls outside the analytical measurement range for that component. When Signatera is designed from whole genome sequencing of the tumor, the analytical sensitivity is 95% at the limit of detection (0.05 MTM/mL). Results obtained are specific to the assessed time point. A negative test result does not definitively indicate the absence of cancer. This test is not designed to detect or report germline variation, nor does it infer hereditary cancer risk for the patient. Each Signatera assay is designed to a single tumor for a given patient. This test is designed to detect ctDNA from the assayed tumor only; new primary tumors will not be detected. There is a low risk that a new primary may share a variant that could interfere with the Signatera test. Testing cannot be performed in patients with a history of bone marrow transplant. 1 Aly SV, Moreno FORDC, Tiera SOLORIO, et al. Personalized circulating tumor DNA analysis as a predictive biomarker in solid tumor patients treated with pembrolizumab. Nature Cancer. 2020;1(9):873-881. 2 Patrick TV, Teresita N, et al., Circulating Tumor DNA in Stage III Colorectal Cancer, beyond Minimal Residual Disease Detection, toward Assessment of Adjuvant Therapy Efficacy and Clinical Behavior of Recurrences. Clin Cancer Res. 202; 28(3):507-517. Methodology FFPE samples are reviewed by a pathologist to assess tumor content and percent tumor nuclei. Tumor DNA is extracted using Erie [employer] Mag-Bind FFPE DNA/RNA kit. Whole genomic DNA is isolated from peripheral blood using QIAamp DNA Blood MiniKit to provide DNA for germline sequencing. Circulating tumor DNA (ctDNA) is extracted from plasma derived from whole blood samples collected in cell-free DNA blood tubes (NOW[employer] Innovations) using the QIAAllazoHealthmphony automated or manual extraction method (Qiagen). Whole genome sequencing is performed on tumor and peripheral blood DNA using the Ujogo whole genome sequencing assay. Using a proprietary algorithm, putative, clonal variants present in the tumor but absent in the germline DNA are identified to design the customized multiplex PCR assay. The customized PCR assays are run to detect presence or absence of these variants within circulating plasma. Sample level calls are determined using a residential sales executive that integrates confidence scores across all targets, as well as off-target errors. Disclaimer The extraction, library preparation, and sequencing for this test were performed by [employer] [id number], [facility] [place] [address] (CLIA ID [id number]). The data analysis and reporting for this test were performed by [facility] [address] [facility], [place] [address] (CLIA ID [id number]). This test was developed and its performance characteristics determined by [facility]. The test has not been cleared or approved by the U.S. Food and Drug Administration (FDA). CAP accredited, ISO 32678 certified, and CLIA certified. Pathology services and whole genome sequencing for this test were performed by [facility]. (CLIA ID [id number]) [id number], [facility] A [facility] [place] [address] 2023 [employer]. All Rights Reserved. Blood specimen (specimen) Venous blood specimen / Unknown 04/27/2025 10:57 AM CDT 04/28/2025 2:00 AM CDT Kevin Kraft MD LAB GENETIC TESTING Final Resu lt [facility] [address] [place] [address], [facility] * POCT glucose (03/24/2025 10:08 AM CDT) Glucose, POC 81 70 - 199 mg/dL Blood 03/24/2025 10:0 8 AM CDT 03/24/2025 10:08 AM CDT us Shant Valle Jr., MD LAB POCT ORDERABLES - FADI CE Final Result Performing Organization Address City/[facility] Co de Phone Number [facility] [place] [address] * Surgical pathology (03/24/2025 8:44 AM CDT) Tissue (Lymph node, sentinel, melanoma) 03/24/2025 8:44 AM CDT Tissue specimen (specimen) (Lymph node, sentinel, melanoma) 03/24/2025 9:07 AM CDT Narrative PATHOLOGY [facility] - 03/30/2025 3:57 PM CDT EPIC results best viewed via link to PDF [facility] [place] [address] Note to Patients: This report may contain a detailed description of human tissue sent by a health care provider to the laboratory for pathologic evaluation. The content of this report is essential for diagnosis and may provide important critical findings. This information may be unfamiliar to patients to review without a medical professional present. It is advised that the patient review this report in the presence of a health care provider who can answer questions and explain the details. SURGICAL PATHOLOGY REPORT FINAL Patient Name: ANATOLIY FRIEDMAN Gender: M : 1945 (Age: 80) Address: [address] [place] [id number] Hospital #: [id number] Taken:03/24/2025 Received:03/24/2025 Reported: 03/30/2025 Patient Type: [facility] Service: Surgery Location: Physician(s): Edward uJstice Jr, M.D. Diagnosis: A. Lymph node, left axillary #1 from level 1 hot & blue 834 CP10S, sentinel lymph node: Isolated Drayton-1 and HMB-45 positive cell Note: There is a single cell beneath the lymph node capsule highlighted on both Drayton-1 and HMB 45 immunostains that is not appreciated on routine histology. I cannot determine the significance of this cell with any certainty but a micrometastasis cannot be entirely excluded. B. Skin, left shoulder superior lateral, excision: Scar from a previous procedure Note: There is no evidence of a neoplasm in these sections. [facility]/03/30/2025 11:33 By this signature, I attest that the above diagnosis is based upon my personal examination of the slides(and/or other material indicated in the diagnosis). [place]ia Saini M.D. Report Electronically Reviewed and Signed Out By Albania Saini M.D. 03/30/2025 15:57:02 Microscopic Description and Comment: A. The histological findings substantiate the above diagnosis. (R23.8) B. There is a proliferation of fibroblasts aligned parallel to the skin surface interposed among linearly arranged, thickened collagen bundles and small blood vessels. (L90.5) Microscopic slide review and interpretation for this case was performed at the [facility] Center, Department of Pathology and Immunology, [facility], [address] [place] [address], [address], [place] [address] CLIA # [id number] Sis Adam M.D. 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 Operative procedure: Left shoulder cyst/lesion/mass excision, left sentinel lymph node biopsy with lymphoscintigraphy. Specimen(s) Received: A: Lymph node, left axillary #1 from level 1 hot & blue 834 CP10S, sentinel lymph node B: Skin, left shoulder superior lateral, excision Gross Description: Received in two formalin jars labeled with the patient's identifiers. A. Labeled left axillary sentinel lymph node #1 From level 1, hot and blue, 834 CP10S is a single, rubbery, rangel- pink lymph node (1.7 x 1.5 x 0 0.2 cm). Labeled A1-one lymph node, serially sectioned. Jar 0. B. Labeled wide local excision left shoulder melanoma, short stitch superior, long stitch lateral is a circular shaped portion of rubbery dull white to pale rangel, blue stained skin (5.5 cm in diameter by 1.2 cm in thickness), with a short stitch along one aspect designated as superior and a long stitch designated as lateral. The short stitch will be arbitrarily redesignated as 12 o'clock, redesignating the long stitch at 3 o'clock. The 12-3 to 6 o'clock half of the specimen is inked black and the 6-9 to 12 o'clock half of the specimen is inked blue. The specimen is photographed. There is a centrally located, flattened, white, blue stained, ill-defined area of pallor (1.9 by 1.5 cm), which comes to within 1.7 cm to the nearest 12 o'clock skin margin. Sections through the area of pallor reveals a dull pale magana consolidated cut surface (depth of invasion up to 0.2 cm) which comes to within 0.5 cm to the deep margin. Free-floating within the container are two additional roughly triangular shaped portions of rubbery, unremarkable, wrinkled, white-rangel to blue stained skin (3.6 to 5.7 cm in greatest dimension, inked blue and black, respectively). Labeled B1-12 o'clock tip, shaved; B2-6 o'clock tip, shaved;W5-N53-mrivnuds shaped specimen, submitted entirely and sequentially from 12-6 o'clock (J6-H2-dmtnhedsdx sections between 12 o'clock and area of pallor B5-one section, bisected;B6-S48-rwzy of pallor B6-B8-one section bisected in each cassette; O4-R88-khlyqdlx depth of invasion closest approach to deep, one section bisected; B11-B12- one section bisected;B13-one section, bisected; O40-X84-aariiggxdo sections between area of pallor and 6 o'clock gotH23-G55-fqs section, bisected, in each cassette);G89-bfhjqikyeazwcs sections of smaller portion of triangular skin; I83-jvypslgueyjmtm sections of larger portion of triangular skin. Jar 0. emg/03/25/2025 14:28 PA(s): Aisha Long, MS, PA ([facility])CM By this signature, I attest that the above diagnosis is based upon my personal examination of the slides(and/or other material). Addenda/Procedures The performance characteristics of some immunohistochemical stains, fluorescence in-situ hybridization tests and immunophenotyping by flow cytometry cited in this report (if any) were determined by the Surgical Pathology and Flow Cytometry Departments at [facility] as part of an ongoing quality assurance supervisor chassis program and in compliance with federally mandated regulations drawn from the Clinical Laboratory Improvement Act of 1988 (CLIA '88). Some of these tests rely on the use of analyte specific reagents and are subject to specific labeling requirements by the US Food and Drug Administration. Such diagnostic tests may only be performed in a facility that is certified by the Department of Health and Human Services as a high complexity laboratory under CLIA '88. The FDA has determined that such clearance or approval is not necessary. This test is used for clinical purposes. It should not be regarded as investigational or for research. Nevertheless, federal rules concerning the medical use of analyte specific reagents require that the following disclaimer be attached to the report: This test was developed and its performance characteristics determined by the Surgical Pathology and Flow Cytometry Departments of [facility]. It has not been cleared or approved by the U. S. Food and Drug Administration. IMAGES AND SCANNED DOCUMENTS, IF INCLUDED, ONLY VIEWABLE IN PDF VERSION OF REPORT Shant Valle Jr., MD LAB PATHOLOGY ORDERABLES F inal Result PATHOLOGY [facility] 3rd Floor [place], [place] [phone] * POCT glucose (03/24/2025 8:18 AM CDT) Glucose, POC 76 70 - 199 mg/dL Blood 03/24/2025 8:18 AM CDT 03/24/2025 8:18 AM CDT Shant Valle Jr., MD LAB POCT ORDERABLES - FADI CE Final Result [facility] [place] [address] * IA AN PROCEDURE PLACEHOLDER (03/24/2025 7:49 AM CDT) Narrative Lluvia Clement CRNA - 03/24/2025 7:49 AM CDT Lluvia Clement CRNA 03/24/2025 7:50 AM Airway Patient location: OR Indications for airway management: anesthesia and airway protection Difficult airway: no Staff: Supervising provider: Hazel Cleveland MD Placed by: REINFORCING METAL WORKER: Lluvia Clement CRNA Emergent airway documentation: Risks and benefits discussed: yes Consent obtained: yes Consent given by: patient Airway prep: Preoxygenated: yes Patient position: sniffing Mask difficulty assessment: 0 - not attempted Sedation level during airway: GA Final airway details: Final airway type: supraglottic airway Final supraglottic airway: IGel SGA size: 5 Number of attempts: 1 us Hazel Cleveland MD ANESTHESIA ORDERABLES Fin al Result * POCT glucose (03/24/2025 6:05 AM CDT) Glucose, POC 78 70 - 199 mg/dL Blood 03/24/2025 6:05 AM CDT 03/24/2025 6:05 AM CDT us Shant Valle Jr., MD LAB POCT ORDERABLES - FADI CE Final Result Performing Organization Address [facility] de Phone Number [facility] [place] [address] * NM Lymphoscintigraphy (Skin Cancer) (03/23/2025 3:52 PM CDT) Anatomical Region Laterality Modality N/A Nuclear Medicine 03/23/2025 4:48 PM CDT Impressions 03/23/2025 4:53 PM CDT [place] node(s) identified as described above for subsequent intraoperative removal with gamma probe guidance. Dictated by: Triston Pham M.D. The radiology attending physician has personally reviewed this study, and had reviewed and/or edited this written report and agrees with it. Electronically signed by: DO Ernesto Saunders 03/23/2025 4:53 PM CDT EXAMINATION: LYMPHOSCINTIGRAPHY DATE OF STUDY: 03/23/2025 RADIOPHARMACEUTICAL: 1090 microcuries Tc-99m Tilmanocept intradermally HISTORY: 6-year-old male with a biopsy-proven left shoulder malignant melanoma TECHNIQUE: The tracer was injected in the shoulder adjacent sent to the lesion by Dr. Bala Campos. FINDINGS: Delayed images of the left shoulder and upper thorax were obtained beginning at 20 minutes after injection in anterior and left lateral projections. Intense caroline uptake is seen in 1 node located in the left anterior axilla. Procedure Note Bala Campos DO - 03/23/2025 EXAMINATION: LYMPHOSCINTIGRAPHY DATE OF STUDY: 03/23/2025 RADIOPHARMACEUTICAL: 1090 microcuries Tc-99m Tilmanocept intradermally HISTORY: 6-year-old male with a biopsy-proven left shoulder malignant melanoma TECHNIQUE: The tracer was injected in the shoulder adjacent sent to the lesion by Dr. Bala Campos. FINDINGS: Delayed images of the left shoulder and upper thorax were obtained beginning at 20 minutes after injection in anterior and left lateral projections. Intense caroline uptake is seen in 1 node located in the left anterior axilla. IMPRESSION: [place] node(s) identified as described above for subsequent intraoperative removal with gamma probe guidance. Dictated by: Triston Pham M.D. The radiology attending physician has personally reviewed this study, and had reviewed and/or edited this written report and agrees with it. Electronically signed by: Bala Campos DO Shant Valle Jr., MD IM NM PROCEDURES Final Re sult from Last 3 Months Insurance [facility] MEDIC[facility] ADV[facility]AGE [facility] Care Teams Copier Field Service Technician Relationship Specialty Start Date End Date Adam Posada MD PCP - General 12/12/16 Shant Valle Jr., MD 1 [facility] [place] [address] Surgeon General Surgery 04/09/25 Kevin Kraft MD 1 [facility] [place] [address] Medical Oncologist/Line Patrolman Medical Oncology 04/09/25
--- OUTSIDE RECORDS SUMMARY | 2025-06-23 03:22 | XMS_ITS ---
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
--- OUTSIDE RECORDS SUMMARY | 2025-06-23 03:22 | XMS_ITS | Encounter Summary ---
Author Organization [facility] Address [address] [place] [address] Phone Care Team Providers Care Eligibility Clerk Name Role Phone Adam Posada MD Primary Care Provider [phone] Leonard Greene MD, Shant Luo Unavailable [phone] Kevin Kraft MD Unavailable [phone] Encounter Details Date Type Department Care Team (Late st Contact Info) Description 06/22/2025 Telephone [facility] Medicine Oncology [address] [facility] [address] [place] [address] Braxton Santiago CMA Social History Tobacco Use Types Packs/Day Years [...] on file Legal Sex Male 2:28 AM SCOUT SNIPER Gender Identity Not on file Sexual Orientation Not on file documented as of this encounter Miscellaneous Notes * Telephone Encounter - Santiago, Tadiasha, RESEARCH INSTRUMENTATION TECHNICIAN - 06/22/2025 12:44 PM SCOUT SNIPER Left vm for pt to return my call at desk # [phone]. F/u call from 06/19 to inquire if he was able to picker medication for his labs. Shirley T SNIPER documented in this encounter Plan of Treatment Not on file documented as of this encounter Visit Diagnoses Not on filedocumented in this encounter Care Teams Eligibility Clerk Relationship Specialty Start Date End Date Adam Posada MD PCP - General 12/12/16 Shant Valle Jr., MD 1 [facility] [place] [address] Surgeon General Surgery 04/09/25 Kevin Kraft MD 1 [facility] [place] [address] Medical Oncologist/Sound Technician Medical Oncology 04/09/25 documented as of this encounter
--- OUTSIDE RECORDS SUMMARY | 2025-06-23 03:22 | XMS_ITS | Encounter Summary ---
Author Organization [facility] Address [address] [place] [address] Phone Care Team Providers Care Pastoral Assistant Name Role Phone Adam Posada MD Primary Care Provider Leonard Greene MD, Shant Luo Unavailable [phone] Kevin Kraft MD Unavailable [phone] Encounter Details Date Type Department Care Team (Latest Contact Info) Description 12/17/2024 Orders Only [facility] Scanning, Provider Social History Tobacco Use Types Packs/Day Years Used Date Smoking Tobacco: Former Sex and Gender Information Value Date Recorded Sex Assigned at Not on file Legal Sex Male 2:28 AM CONTROL EQUIPMENT ELECTRICIAN Gender Identity Not on file Sexual Orientation Not on file documented as of this encounter Plan of Treatment Not on file documented as of this encounter Procedures Procedure Name Priority Date/Time Associated Diagnosis Comments SCAN - PATHOLOGY 12/17/2024 documented in this encounter Results * SCAN - PATHOLOGY (12/17/2024) us Provider Scanning Final Result documented in this encounter Visit Diagnoses Not on filedocumented in this encounter Care Teams Pastoral Assistant Relationship Specialty Start Date End Date Adam Posada MD PCP - General 12/12/16 Shant Valle Jr., MD 1 [facility] [place] [address] Surgeon General Surgery 04/09/25 Kevin Kraft MD 1 [facility] [place] [address] Medical Oncologist/Stripping Shovel Oiler Medical Oncology 04/09/25 documented as of this encounter
--- OUTSIDE RECORDS SUMMARY | 2025-06-23 03:23 | XMS_ITS | Encounter Summary ---
Author Organization [facility] Address [address] [place] [address] Phone Care Team Providers Care Airport Refueling Handler Name Role Phone Golden Soler MD Primary Care Provider [phone] Golden Soler MD Primary Care Provider [phone] Adam Posada MD Primary Care Provider [phone] Leonard Greene MD, Shant Luo Unavailable [phone] Kevin Kraft MD Unavailable [phone] Encounter Details Date Type Department Care Team (Latest Contact Info) Description 1945 Orders Only [facility] Scanning, Provider Social History Tobacco Use Types Packs/Day Years Used Date Smoking Tobacco: Never Assessed Sex and Gender Information Value Date Recorded Sex Assigned at Not on file Legal Sex Male 2:28 AM ARTISTIC ASSOCIATE Gender Identity Not on file Sexual Orientation Not on file documented as of this encounter Plan of Treatment Not on file documented as of this encounter Procedures Procedure Name Priority Date/Time Associated Diagnosis Comments SCAN - PATHOLOGY 1945 documented in this encounter Results * SCAN - PATHOLOGY (1945) us Provider Scanning Final Result documented in this encounter Visit Diagnoses Not on filedocumented in this encounter Care Teams Airport Refueling Handler Relationship Specialty Start Date End Date Golden Soler MD [address] [facility] [address] [place] [address] PCP - General 12/07/16 12/10/16 Golden Soler MD [address] [facility] [address] [place] [address] PCP - General 12/11/16 12/11/16 Adam Posada MD [address] [facility] [address] [place] [address] PCP - General 12/12/16 Shant Valle Jr., MD [address] [facility] [place] [address] Surgeon General Surgery 04/09/25 Kevin Kraft MD [address] [facility] [place] [address] Medical Oncologist/Delivery Rn Medical Oncology 04/09/25 documented as of this encounter
--- OUTSIDE RECORDS SUMMARY | 2025-06-23 03:23 | XMS_ITS | Encounter Summary ---
Author Organization [facility] [place] [facility] Address [address] [place] [address] Phone Care Team Providers Care Senior Client Advisor Name Role Phone Adam Posada MD Primary Care Provider [phone] Leonard Greene MD, Shant Luo Unavailable [phone] Kevin Kraft MD Unavailable [phone] Encounter Details Date Type Department Care Team (Late st Contact Info) Description 06/19/2025 Orders Only [facility] Medicine Oncology [address] [facility] [address] [place] [id number] Kevin Kraft MD [address] [facility] [address] [facility] [address] [place] [address] Hyperkalemia (Primary Dx); 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 (HCC); Malignant melanoma of left upper extremity including shoulder (HCC) Social History Tobacco Use Types Packs/Day Years [...] on file Legal Sex Male 2:28 AM TONGUE STITCHER Gender Identity Not on file Sexual Orientation Not on file documented as of this encounter Functional Status documented as of this encounter Plan of Treatment Not on file documented as of this encounter Results * (ABNORMAL) Potassium, whole blood (06/19/2025 10:46 AM TONGUE STITCHER) Potassium, bld 5.6(H) 3.3 - 4.9 mmol/L Blood 06/19/2025 10:4 6 AM TONGUE STITCHER 06/19/2025 10:58 AM TONGUE STITCHER Kevin Kraft MD LAB BLOOD ORDERABLES Final Res ult [facility] [address] [facility] Department [place] [address] documented in this encounter Visit Diagnoses Diagnosis Hyperkalemia- Primary Hyperpotassemia 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
[2025-06-23 09:15] VITALS: BP 120/68; PULSE 74; RESP 18; TEMP 36.4; O2SAT 99; BMI 25.9
[2025-06-23] MEDS: LACTATED RINGERS 1,000 ML 150 ML IV CONT (09:45)
--- NOTE | 2025-06-23 10:14 | WPDANESEPPF ---
Anes - Initial Pre Proc Eval Procedure: Operation Date: 06/23/25 10:30 Proposed Procedures p Diagnostic Colonoscopy - Alvaro Jaramillo MD Date/Time: 06/23/25 10:14 Surgeon: Alvaro Jaramillo MD Pre Op Diagnosis: Hx colon cancer, colitis Patient Data Age: 80 Gender: M Height: 1.88 m Weight: 91.7 kg Last Vital Signs Temp 97.5 F L 06/23/25 09:15 Pulse 74 06/23/25 09:15 Resp 18 06/23/25 09:15 BP 120/68 06/23/25 09:15 Pulse Ox 99 06/23/25 09:15 O2 Del Method Room Air 06/23/25 09:15 Allergies Allergy/AdvReac Type Severity Reaction Status Date / Time No Known Allergies Allergy Unknown Verified 06/23/25 09:20 Home Medications ?Medication ?Instructions ?Recorded ?Confirmed ?Type omega 8-wcm-jah-fish oil 1,000 mg 1 cap PO BID 01/19/21 06/23/25 History (120 mg-180 mg) capsule (Fish Oil) aspirin 81 mg capsule 81 mg PO DAILY 08/22/21 06/23/25 History lisinopril 20 mg tablet See Rx Instructions .Route 02/10/25 06/23/25 Rx .COMPLEX #90 tabs blood sugar diagnostic (Contour #100 ea 02/16/25 06/12/25 Rx Plus Test Strip) blood-glucose meter (Contour Plus #1 ea 02/16/25 06/12/25 Rx Blue Meter) pen needle, diabetic 32 gauge x #100 ea 03/18/25 06/12/25 Rx 1/4 (Novofine 32) insulin degludec 200 unit/mL (3 42 unit (0.21 mL) subcut QAM #9 mL 03/27/25 06/23/25 Rx mL) subcutaneous pen (Tresiba FlexTouch U-200 insulin) mesalamine 1.2 gram tablet,delayed See Rx Instructions .Route 05/11/25 06/23/25 Rx release .COMPLEX #270 tabs rosuvastatin 40 mg tablet See Rx Instructions .Route 05/11/25 06/23/25 Rx .COMPLEX #90 tabs tadalafil 20 mg tablet (Cialis) 20 mg PO DAILY PRN sexual activity 06/12/25 06/15/25 Rx #14 tabs Laboratory Tests 06/23/25 09:30 POC Capillary Glucose 83 mg/dl (65-105) Patient hx anesthesia problems: none Family hx anesthesia problems: none Results Review: All pre-operative results and documents have been reviewed as part of the pre-operative evaluation. [facility] Past Medical History Medical History BMI 26.0-26.9,adult Fatty liver Crohn's disease with complication Abnormal colonoscopy Renal failure stage III Erosive gastritis Ulcerative pancolitis Early satiety Weight loss Diarrhea Anemia Arthritis HTN (hypertension) HLD (hyperlipidemia) Diabetes mellitus Crohn's disease Surgical History Surgical History Hx of shoulder surgery H/O colectomy 05/04/20: BARTOLOME sigmoid colectomy History of removal of pigmented skin lesion History of esophagogastroduodenoscopy (EGD) Total knee replacement status History of ankle surgery right ankle Family History Family History Father , 72 Lung cancer Mother , 93 Diabetes mellitus Heart disease Social History Social History Smoking packs per day: 1 Smoking cigarettes per day: 20.0 Years smoked: 30 Smoking pack-years: 30.00 Smoking status: Former smoker Tobacco type: cigarettes Second hand tobacco smoke exposure: No Smoking end date: 08/06/84 Additional smoking assessment comments: quit 30 years ago Alcohol intake: current Drinks per week: 7 Alcohol use details: States they drink about 1 to 2 alcoholic drinks a day Substance use: never Substance use type: does not use Do You Feel Safe in your Home?: Yes Lack of Transportation: No Lack of Food: Never True Current Housing: I Have Housing Concerned About Future Housing: No Difficulty Paying Gas/Electric Bills: No Difficulty Paying for Meds: No Currently Unemployed: No Education: Bachelor's Degree Difficulty w/ Childcare or Family Care: No Living arrangements: alone Occupation/Education: retired 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 HTN, hyperlipidemia, DM fsbs 83, CKD, Crohn's, overall fair ET, no cp or sob w walking short distances. Informed Consent: The patient's anesthetic plan and its attendant risks and benefits were discussed with the patient/family/POA. Questions were solicited and answers provided to the satisfaction of the patient/family/POA.
--- NOTE | 2025-06-23 10:19 | PM.HPGS ---
History of Present Illness History of Present Illness Consent: Risks, benefits, and alternatives have been discussed and questions answered. Patient agrees to proceed with procedure. Chief complaint: Hx colon cancer, colitis Narrative: Anatoliy Alcantara is a 80 year old male here for another colonoscopy. He has history of colitis on mesalamine diagnosed officially 07/2019 when presented with anemia and malaise, also had laparoscopic sigmoid colectomy with colorectal anastomosis on 05/04/[address] Bradley. 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 0 out of 16 lymph nodes were positive. Since with yearly colonoscopies mostly affecting cecum, last one with Rangel 3 score, normal sigmoid anastomosis, no lesions, bx without dysplasia Review of Systems Review of Systems: All systems reviewed & are unremarkable except as noted in HPI and below PMFSH Past Medical History Medical History BMI 26.0-26.9,adult Fatty liver Crohn's disease with complication Abnormal colonoscopy Renal failure stage III Erosive gastritis Ulcerative pancolitis Early satiety Weight loss Diarrhea Anemia Arthritis HTN (hypertension) HLD (hyperlipidemia) Diabetes mellitus Crohn's disease Surgical History Surgical History Hx of shoulder surgery H/O colectomy 05/04/20: BARTOLOME sigmoid colectomy History of removal of pigmented skin lesion History of esophagogastroduodenoscopy (EGD) Total knee replacement status History of ankle surgery right ankle Family History Family History Father , 72 Lung cancer Mother , 93 Diabetes mellitus Heart disease Social History Social History Smoking packs per day: 1 Smoking cigarettes per day: 20.0 Years smoked: 30 Smoking pack-years: 30.00 Smoking status: Former smoker Tobacco type: cigarettes Second hand tobacco smoke exposure: No Smoking end date: 08/06/84 Additional smoking assessment comments: quit 30 years ago Alcohol intake: current Drinks per week: 7 Alcohol use details: States they drink about 1 to 2 alcoholic drinks a day Substance use: never Substance use type: does not use Do You Feel Safe in your Home?: Yes Lack of Transportation: No Lack of Food: Never True Current Housing: I Have Housing Concerned About Future Housing: No Difficulty Paying Gas/Electric Bills: No Difficulty Paying for Meds: No Currently Unemployed: No Education: Bachelor's Degree Difficulty w/ Childcare or Family Care: No Living arrangements: alone Occupation/Education: retired 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[employer] Gender identity (if verbalized by the patient): Male Spiritual care concerns: No Meds Home Medications and Allergies Home Medications ?Medication ?Instructions ?Recorded ?Confirmed ?Type omega 0-xiz-wlz-fish oil 1,000 mg 1 cap PO BID 01/19/21 06/23/25 History (120 mg-180 mg) capsule (Fish Oil) aspirin 81 mg capsule 81 mg PO DAILY 08/22/21 06/23/25 History lisinopril 20 mg tablet See Rx Instructions .Route 02/10/25 06/23/25 Rx .COMPLEX #90 tabs blood sugar diagnostic (Contour #100 ea 02/16/25 06/12/25 Rx Plus Test Strip) blood-glucose meter (Contour Plus #1 ea 02/16/25 06/12/25 Rx Blue Meter) pen needle, diabetic 32 gauge x #100 ea 03/18/25 06/12/25 Rx 1/4 (Novofine 32) insulin degludec 200 unit/mL (3 42 unit (0.21 mL) subcut QAM #9 mL 03/27/25 06/23/25 Rx mL) subcutaneous pen (Tresiba FlexTouch U-200 insulin) mesalamine 1.2 gram tablet,delayed See Rx Instructions .Route 05/11/25 06/23/25 Rx release .COMPLEX #270 tabs rosuvastatin 40 mg tablet See Rx Instructions .Route 05/11/25 06/23/25 Rx .COMPLEX #90 tabs tadalafil 20 mg tablet (Cialis) 20 mg PO DAILY PRN sexual activity 06/12/25 06/15/25 Rx #14 tabs Allergies Allergy/AdvReac Type Severity Reaction Status Date / Time No Known Allergies Allergy Unknown Verified 06/23/25 09:20 Vital Signs Vital Signs - 24 hr 06/23/25 09:15 Temperature 97.5 F L Pulse Rate 74 Respiratory Rate 18 Blood Pressure 120/68 Pulse Oximetry 99 Oxygen Delivery Room Air Exam Const: General: comfortable and no acute distress HENMT: Face/Nose/Sinus: Normal nares present Eyes: General: appearance normal, both eyes and all related structures Resp: Auscultation: clear to auscultation bilaterally Cardio: Rate: regular rate Rhythm: regular rhythm GI: Inspection: non-distended GI Palp: Yes Soft to palpation Skin: General skin exam: normal color Extrem: General: normal to inspection Psych: Mental Status: mental status grossly normal Assessment and Plan Assessment and plan (1) Ulcerative pancolitis: Code(s): K51.00 - Ulcerative (chronic) pancolitis without complications Status: Acute Assessment and Plan: colonoscopy (2) S/P colectomy: Code(s): Z90.49 - Acquired absence of other specified parts of digestive tract Status: Acute
--- NOTE | 2025-06-23 10:34 | S_PTH ---
PATIENT: Anatoliy Alcantara LOC: [facility]#:[id number] AGE/SX: 80/M ROOM: RE06/23/[address]: Alvaro Jaramillo MD : 1945 BED: DIS: 06/23/2025 SPEC #: [id number] RECD: 06/23/25 11:00 STATUS: TREVOR DOE #: [id number] ONDINA: 06/23/25 10:[address]: Alvaro Jaramillo DEPT: [facility] Surgical RECD BY: Ade Wise ENTERED: 06/23/25 11:01 SP TYPE: Surgical OTHR DR: Alex Hernandez APRN Tissues: A - Colon Biopsy B - Colon Biopsy C - Colon Biopsy Procedures: Hematoxylin and Eosin Stain Gross and Microscopic Level 4
[2025-06-23 10:38] VITALS: BP 94/60; PULSE 64; RESP 21; O2SAT 99
[2025-06-23 10:48] VITALS: BP 112/58; PULSE 66; RESP 20; O2SAT 100
[2025-06-23 10:58] VITALS: BP 135/55; PULSE 57; RESP 16; O2SAT 100
== END 2025-06-23 11:09 | disposition home or self-care (01) ==
LOC: ANHENDO 02:10 → ANHSURGERY 10:39 → ANHENDO 06-24 08:47
PROVIDERS: PCP Nurse Practitioner; Referring Provider Internal Medicine Gastroenterology; Visit Provider Internal Medicine Gastroenterology
PROC: 0DJD8ZZ Inspection of Lower Intestinal Tract, Via Natural or Artificial Opening Endoscopic (ICD-10-PCS; CPT 45378; principal; 2025-06-23 10:30)
DX: K51.811 Other ulcerative colitis with rectal bleeding (principal); K64.8 Other hemorrhoids; K57.30 Diverticulosis of large intestine without perforation or abscess without bleeding; E78.5 Hyperlipidemia, unspecified; D64.9 Anemia, unspecified; E11.22 Type 2 diabetes mellitus with diabetic chronic kidney disease; I12.9 Hypertensive chronic kidney disease with stage 1 through stage 4 chronic kidney disease, or unspecified chronic kidney disease; N18.30 Chronic kidney disease, stage 3 unspecified; M19.90 Unspecified osteoarthritis, unspecified site; Z79.82 Long term (current) use of aspirin; Z79.4 Long term (current) use of insulin; Z98.890 Other specified postprocedural states; Z98.0 Intestinal bypass and anastomosis status; Z90.49 Acquired absence of other specified parts of digestive tract; Z87.891 Personal history of nicotine dependence; Z85.038 Personal history of other malignant neoplasm of large intestine; Z87.19 Personal history of other diseases of the digestive system; Z80.1 Family history of malignant neoplasm of trachea, bronchus and lung; Z82.49 Family history of ischemic heart disease and other diseases of the circulatory system
CPT/HCPCS: 45380; 82948; 88305; J2003; J2704; J7120